=== PATIENT | female | born 1980 | race Caucasian/White ===

== ENCOUNTER 2021-05-02 09:54 | Outpatient (REF) | payer MEDICAID, SELFPAY ==
--- NOTE | ~2021-05-02 | XR_ITS ---
EXAMINATION: XR CHEST CLINICAL INFORMATION: Viral infection. Cough. COMPARISON: Previous chest x-ray February 2020 TECHNIQUE: 2 views of the chest were obtained. FINDINGS: No significant abnormality is noted involving the heart, lungs, mediastinum, bony thorax or soft tissues. XR/XR chest 2V IMPRESSION: Unremarkable examination.
== END 2021-05-02 09:55 | disposition home or self-care (01) ==
LOC: HO.XRAY 09:54
PROVIDERS: PCP Pediatrics; Visit Provider General Practice
DX: R05 Cough (principal); B34.9 Viral infection, unspecified
CPT/HCPCS: 71046

== ENCOUNTER 2023-04-16 13:15 | Outpatient (REF) | payer MEDICAID, SELFPAY ==
--- NOTE | ~2023-04-16 | XR_ITS ---
EXAMINATION: XR CHEST CLINICAL INFORMATION: Cough, Covid positive March 2014 COMPARISON: 06/02/2021 TECHNIQUE: 3 views of the chest were obtained. FINDINGS: Lung volumes are low. There is no gross pneumothorax. Heart size is normal. No focal consolidation to suggest pneumonia. No pleural effusion. XR/XR chest 2V IMPRESSION: Low lung volumes.
== END 2023-04-16 13:16 | disposition home or self-care (01) ==
LOC: HO.HHCX 13:15
PROVIDERS: Visit Provider Internal Medicine
DX: U07.1 COVID-19 (principal); J40 Bronchitis, not specified as acute or chronic
CPT/HCPCS: 71046

== ENCOUNTER 2023-09-07 12:34 | Outpatient (REF) | payer MEDICAID, SELFPAY ==
[2023-09-07 15:04] LABS: Alanine Aminotransferase 43 U/L (0-31); Albumin Level 4.1 g/dL (3.5-5.0); Alkaline Phosphatase 73 U/L (39-117); Aspartate Amino Transferase 34 U/L (5-31); Bilirubin Direct 0.1 mg/dL (0.0-0.5); Bilirubin Total 0.3 mg/dL (0.0-1.0); Total Protein 7.9 g/dL (6.5-8.0)
[2023-09-10 12:38] LABS: HCV Log PCR 6.64 Log IU/mL (NOT DETECTED); HepC Viral Load 4390000 IU/mL (NOT DETECTED)
== END 2023-09-07 12:35 | disposition home or self-care (01) ==
LOC: HO.CHCLDS 12:34
PROVIDERS: Visit Provider Family Medicine
DX: B18.2 Chronic viral hepatitis C (principal)
CPT/HCPCS: 36415; 80076; 87522

== ENCOUNTER 2023-10-04 08:41 | Outpatient (REF) | payer MEDICAID, SELFPAY | END 2023-10-04 08:42 | disposition home or self-care (01) | LOC: HO.XRAY 08:41 | PROVIDERS: PCP Pediatrics; Visit Provider Orthopaedic Surgery | DX: Z13.89 Encounter for screening for other disorder (principal) ==

== ENCOUNTER 2023-10-04 08:53 | Outpatient (AMB) | payer MEDICAID, SELFPAY ==
--- NOTE | 2023-10-04 09:01 | A.OFFVIS_ITS ---
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 She states that her symptoms began in April. She does not recall a specific traumatic event preceding the onset of her pain. The patient states that 2 months ago her range of motion was very limited. One of her friends is a physical therapist. She has been working with the friend on range of motion exercises. She states that her range of motion and discomfort have improved significantly over the last few weeks. 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 She has not been working recently because there is no light duty available. Allergies No Known Allergies Allergy (Verified 10/04/23 09:01) Medication List - Last Reconciled 10/04/23 by Milad Cerrato MD methadone 140 mg PO DAILY PFSH Surgical History (Updated 10/04/23 @ 09:03 by Erinn Piedra MA) Hx of section Social History Household Members: Children Housing: House Alcohol intake: never Patient Tobacco Use Status: Current everyday Tobacco user Cigarettes Per Day: 10 Years Smoked: 20 e-Cigarette/Vaping Use: Never Used Use of substances other than those prescribed or required for medical reasons: No Current occupational status: other Physical Exam Const Other: Well-nourished well-developed very friendly female awake alert and oriented x3 in no acute distress Extrem Other: Bilateral upper extremity examination shows good capillary refill, no skin lesions noted, normal sensation light touch Right shoulder examination shows slightly decreased range of motion when compared to her left shoulder, 5/5 strength with supraspinatus testing, positive impingement signs, tenderness over her acromioclavicular joint, no instability Results Reviewed Results Reviewed: X-rays of the patient's right shoulder show moderate acromioclavicular joint narrowing, a type 2 acromion, no acute bony abnormalities Assessment & Plan Assessment & Plan (1) Right shoulder pain: Code(s): M25.511 - Pain in right shoulder Plan Ms. Hester presents with right shoulder pain most likely due to impingement syndrome as well as resolving adhesive capsulitis. I had a lengthy discussion with the patient regarding the treatment options. At this point the patient's symptoms are improving with range of motion exercises. We will hold off on a cortisone injection. The patient can return to work over the next 1-2 weeks as her discomfort allows. The do's and don'ts of lifting were discussed at length with the patient. She will follow up with me on an as-needed basis should her symptoms not plateau at an unacceptable level. Feel free to call me at any time should questions regarding her orthopedic management arise. Thank you very much for asking me to see this very friendly patient. I spent 22 minutes in reviewing the patient's records and imaging studies, seeing the patient and documenting in the medical record. Orders: Orders XR shoulder RT min 2V Today M25.511 - Pain in right shoulder Coding Level of Care Code New Pt Level 2 (92402) Diagnoses Right shoulder pain M25.511
== END 2023-10-04 09:19 | disposition home or self-care (01) ==
PROVIDERS: PCP Pediatrics; Visit Provider Orthopaedic Surgery
DX: M25.511 Pain in right shoulder (principal)
CPT/HCPCS: 99202

== ENCOUNTER 2023-10-04 12:52 | Outpatient (REF) | payer MEDICAID, SELFPAY ==
--- NOTE | ~2023-10-04 | XR_ITS ---
EXAMINATION: XR SHOULDER, RIGHT CLINICAL INFORMATION: Pain in right shoulder COMPARISON: None available. TECHNIQUE: AP and scapular view of the right shoulder FINDINGS: The bones and soft tissues are normal. No fracture. Glenohumeral and acromioclavicular alignment is anatomic with normal joint space. No abnormal soft tissue calcifications. XR/XR shoulder RT min 2V IMPRESSION: Normal right shoulder.
== END 2023-10-04 12:53 | disposition home or self-care (01) ==
LOC: HO.HOSX 12:52
PROVIDERS: Visit Provider Orthopaedic Surgery
DX: M25.511 Pain in right shoulder (principal)
CPT/HCPCS: 73030; 99202

== ENCOUNTER 2024-04-29 10:13 | Outpatient (REF) | payer MEDICAID, SELFPAY ==
--- NOTE | ~2024-04-29 | MM_ITS ---
EXAMINATION: MM SCREENING DIGITAL BREAST TOMOSYNTHESIS, BILATERAL CLINICAL INFORMATION: Screening. Asymptomatic. COMPARISON: Mammography: This is a baseline mammogram TECHNIQUE: Digital breast tomosynthesis is performed in both the craniocaudal and mediolateral oblique views along with computer-aided detection (CAD). Synthesized 2D images are generated from the tomosynthesis. FINDINGS: The breasts are almost entirely fatty (ACR BI-RADS breast composition Category a). There are no significant masses, abnormal calcifications, or other abnormalities. MM/MM tomosynthesis screening BI IMPRESSION: No mammographic evidence of malignancy. ASSESSMENT: BI-RADS BI-RADS 1 - Negative RECOMMENDATION: Routine annual mammography screening. 1 year F/U This examination should not preclude the clinical evaluation of a suspicious palpable abnormality. This patient's information was entered into a reminder system with a target due date for their next mammogram.
== END 2024-04-29 10:14 | disposition home or self-care (01) ==
LOC: HO.MAMMO 10:13
PROVIDERS: PCP Pediatrics; Visit Provider Pediatrics
DX: Z12.31 Encounter for screening mammogram for malignant neoplasm of breast (principal)
CPT/HCPCS: 77063; 77067

== ENCOUNTER → 2024-04-29 10:30 | Outpatient (BNV) | payer MEDICAID, SELFPAY | PROVIDERS: PCP Pediatrics; Visit Provider Radiology Diagnostic Radiology | DX: Z12.31 Encounter for screening mammogram for malignant neoplasm of breast (principal) | CPT/HCPCS: 77063; 77067 ==

== ENCOUNTER 2024-11-07 14:20 | Outpatient (REF) | payer MEDICAID, SELFPAY ==
--- NOTE | ~2024-11-07 | XR_ITS ---
EXAMINATION: XR CHEST CLINICAL INFORMATION: SOB, known Flu A COMPARISON: X-ray dated April 16, 2023 TECHNIQUE: 2 views of the chest were obtained. FINDINGS: No consolidation, pleural effusion or pneumothorax. No hyperinflation. Cardiomediastinal silhouette is normal in size. Osseous structures are grossly intact. Patient's large body habitus. XR/XR chest 2V IMPRESSION: No acute airspace disease. Electronically signed by: Rocael Isidro MD 11/07/2024 02:42 PM [facility]
[2024-11-07 16:03] LABS: MANUAL DIFF FLAG NO
[2024-11-07 16:10] LABS: Basophils Percent Auto 0.3 % (0-2); Eosinophils Percent Auto 0.4 % (0-4); Hematocrit 47.7 % (37.0-47.0); INTERNATIONAL NORM RATIO 1.1 (0.9-1.1); Imm Gran Abs Auto 0.02 X10*3/uL (0.00-0.03); Imm Gran Pct Auto 0.3 % (0.0-0.4); Lymphocytes Absolute Auto 2.2 X10*3/uL (1.2-4.9); Lymphocytes Percent Auto 27.4 % (20-40); Mean Corpuscular HGB Conc 33.5 g/dl (31.0-35.0); Mean Corpuscular Hemoglobin 29.4 pg (27.0-33.0); Mean Corpuscular Volume 87.7 fL (80.0-98.0); Mean Platelet Volume 10.3 fL (9.4-12.3); Monocytes Absolute Auto 0.5 X10*3/uL (0.1-1.2); Monocytes Percent Auto 5.7 % (2-11); Neutrophils Absolute Auto 5.2 x10*3/uL (2.0-8.3); Neutrophils Percent Auto 65.9 % (45-73); Platelet Count 145 X10*3/uL (160-400); Prothrombin Time 12.3 SEC (10.9-12.4); Red Blood Count 5.44 X10*6/uL (4.20-5.50); Red Cell Distribution Width 11.6 % (11.0-16.0); White Blood Count 7.9 X10*3/uL (4.8-10.8)
[2024-11-07 17:04] LABS: Alanine Aminotransferase 70 U/L (0-31); Albumin Level 4.4 g/dL (3.5-5.0); Alkaline Phosphatase 76 U/L (39-117); Anion Gap 10 (12-20); Aspartate Amino Transferase 54 U/L (5-31); Bilirubin Total 0.6 mg/dL (0.0-1.0); Blood Urea Nitrogen 13 mg/dL (9-16); Calcium 9.5 mg/dL (8.4-10.2); Carbon Dioxide 27 mmol/L (22-29); Chloride 103 mmol/L (96-108); Cholesterol 151 mg/dL (<200); Estimated Glomerular Filt Rate > 60; Glucose Random 111 mg/dL (60-115); HDL Cholesterol 38 mg/dL (>40); LDL Cholesterol Calculated 98 mg/dL (<100); Potassium 3.9 mmol/L (3.3-5.1); Sodium 136 mmol/L (135-145); Total Protein 8.8 g/dL (6.5-8.0); Triglycerides 79 mg/dL (<150)
[2024-11-10 08:15] LABS: HIV AB/AG Nonreactive (Nonreactive); HIV Num 1 0.05 S/CO (0.00-0.99)
== END 2024-11-07 14:21 | disposition home or self-care (01) ==
LOC: HO.HHCX 14:20
PROVIDERS: Pediatrics; Visit Provider General Practice
DX: R06.02 Shortness of breath (principal); B18.2 Chronic viral hepatitis C; I10 Essential (primary) hypertension
CPT/HCPCS: 36415; 71046; 80053; 80061; 81596; 85025; 85610; 87389; 87902

== ENCOUNTER → 2024-11-07 14:21 | Outpatient (BNV) | payer MEDICAID, SELFPAY | PROVIDERS: Visit Provider Radiology Diagnostic Radiology | DX: R06.02 Shortness of breath (principal) | CPT/HCPCS: 71046 ==

== ENCOUNTER 2024-11-07 14:38 | Outpatient (REF) | payer MEDICAID, SELFPAY | END 2024-11-07 14:39 | disposition home or self-care (01) | LOC: HO.HHCL 14:38 | PROVIDERS: Visit Provider General Practice | DX: Z13.89 Encounter for screening for other disorder (principal) ==

== ENCOUNTER 2025-05-07 17:58 | Emergency (ER) | payer MEDICAID, SELFPAY ==
--- NOTE | ~2025-05-07 | CT_ITS ---
CLINICAL HISTORY: left facial numbness CT head without contrast Comparison: None provided Findings: No intra-axial mass, midline shift, hydrocephalus, or acute hemorrhage. No significant atrophy-like change or white matter disease. The visualized paranasal sinuses and mastoid air cells are clear. The orbits are within normal limits. No skull fracture. IMPRESSION: 1. No acute intracranial findings. This document has been electronically signed by: Hailey Sarabia MD on 05/07/2025 19:14:14
[2025-05-07 18:09] VITALS: BP 137/109; PULSE 104; RESP 16; TEMP 36.7; O2SAT 97; BMI 37.8
--- NOTE | 2025-05-07 18:10 | ED_ITS ---
HPI - General Adult General Chief complaint: Neuro Symptoms/Deficit Stated complaint: tightness & numbness on left side of face and neck Time Seen by Provider: 05/07/25 21:34 Source: patient Mode of arrival: ambulatory Limitations: no limitations History of Present Illness ED Provider: Dr. Pili Gillette HPI narrative: Patient comes to the emergency room complaining of left signs numbness and tingling, significant decreased sensation in the left side of the face, strange sensation swallowing. Patient states she has no pain. Patient states that she is currently being treated for shingles which she had on her left buttocks. Patient states that the rash already crusted. Patient states that over last few hours, her symptoms have gotten more obvious. Patient denies any ear infections Related Data Home Medications ?Medication ?Instructions ?Recorded ?Confirmed methadone 5 mg tablet 140 mg PO DAILY 10/04/23 Allergies Allergy/AdvReac Type Severity Reaction Status Date / Time No Known Allergies Allergy Verified 05/07/25 18:13 Review of Systems 2 Review of Systems: Constitutional : No Weight loss, No Fever, No Chills, No Night Sweats, No Fatigue, No Malaise ENT/Mouth : No Hearing loss, No Ear Pain, No Nasal Congestion, No Sinus Pain, No Hoarseness, No sore throat, No Rhinorrhea, No Swallowing Difficulty Eyes: No Eye Pain, No Swelling, No Redness, No Foreign Body, No Discharge, No Vision Changes Cardiovascular : No Chest Pain, No SOB, No Dyspnea on Exertion, No Orthopnea, No Edema, No Palpitations Respiratory : No Cough, No Sputum, No Wheezing, No Smoke Exposure, No Dyspnea Gastrointestinal : No Nausea, No Vomiting, No Diarrhea, No Constipation, No abdominal Pain, No Hematochezia, No Melena Genitourinary : no irregular bleeding, No Dysuria, No Urinary Frequency, No Hematuria, No Urinary Incontinence, No Urgency, No Flank Pain, No Urinary Flow Changes, No Hesitancy Musculoskeletal : No joint pain, No Myalgias, No Joint Swelling Skin : No Skin Lesions, No rash Neuro : No Weakness, No Numbness, patient complaining of paresthesias on the left side of the face, difficulty swallowing, got worse over the last few hours Psych : No Anxiety/Panic, No Depression, No SI/HI/AH/VH, No Social Issues, Heme/Lymph: No Bruising, No Bleeding,No Lymphadenopathy Endocrine : No Polyuria, No Polydipsia, No Temperature Intolerance [facility] Past Medical History Medical History (Updated 05/07/25 @ 22:08 by Pili Gillette MD) Hypertension Surgical History (Updated 10/04/23 @ 09:03 by Erinn Piedra CMA) Hx of section Social History Social History Household Members: Children Housing: House Alcohol intake: never Patient Tobacco Use Status: Current everyday Tobacco user Cigarettes Per Day: 10 Years Smoked: 20 e-Cigarette/Vaping Use: Never Used Advance Directives: No Advance Directives Information Provided: No Do you have a plan to hurt others: No Plan Current occupational status: other Physical Exam ED Vital Signs: Vital Signs - 24 hr 05/07/25 18:09 05/07/25 20:23 Temperature 98.0 F 97.6 F Pulse Rate 104 H 77 Respiratory Rate 16 18 Blood Pressure 137/109 H 131/74 Pulse Oximetry 97 96 Oxygen Delivery Method Room Air Room Air BMI result Body Mass Index 37.8 Const Other: Appearance: Alert. Oriented X3. No acute distress. Eyes: Pupils equal, round and reactive to light. ENT: Pharynx normal. Neck: Normal inspection. Neck supple. No lymph nodes noted. No crepitus CVS: Normal heart rate and rhythm. Pulses normal. Normal S1 and S2 Respiratory: No respiratory distress. Breath sounds normal. No Wheezing. No rales Abdomen: Soft and nontender. No rigidity. No distention. Skin: Skin warm and dry. Normal skin color. Normal skin turgor. Extremities: No lower extremity edema. No Lacerations. No Rash Neuro: Oriented X 3. No motor deficit. No sensory deficit. Moving all extremities. No slurred speech. CN 2 through 12 grossly intact Psych: calm, cooperative, normal affect Course Course Course Narrative: This is a rapid medical exam performed by Alphonso Wooten NP: Additional HPI, ROS, PE not included below will be deferred to primary provider. Patient is a 44y/o F presenting from urgent care with complaint of tightness and numbness to left side of face for the past 3 days, also feels difficulty swallowing. Was treated for shingles on 04/24, states her lesions have since crusted over. Face symmetrical. Managing secretions without difficulty. Plan: labs, ct Medical Decision Making Medical Decision Making [facility] Narrative: Patient's CT scan does not show any acute abnormality in patient's labs. CT scan does not show any acute abnormality. Patient states that the numbness/tingling on the left side of the thighs got a bit worse over the last few hours. Patient states she is still able to swallow but it feels very different. On physical exam, there are no signs of Rodriguez's palsy, patient has complete normal facial muscle movement. Normal cranial nerve assessment. Patient is currently being treated for shingles which she had in her buttocks. However, unlikely but not impossible that the viral infection may be causing the paresthesias on the face. It is a very odd distribution of neurological symptoms. I discussed with the patient that the next step is to do a CTA to rule out any thrombus in the brain vasculature. Patient states that she had a bad reaction with contrast in the past, states that her blood pressure got high, make her feel very sick. I offered premedicated the patient to help her with the symptoms since she did not have anaphylactic reaction, we could try. Patient states that she is not willing to get IV contrast. I offered the patient admission to get an MRI. I spoke with Dr. Bernard from the Medicine team, who agrees to admit the patient. However, patient states that she does not have anyone who can take care of her children tonight. Patient states that she may return tomorrow. I discussed with the patient that CVA can not be ruled out. Given the amount of time since her symptoms started, this is not a TIA either, over 48 hours now with worsening symptoms over last few hours I discussed with the patient that if she has any new or worsening symptoms, she needs to return immediately to the emergency room. Patient agrees with plan. Differential Diagnosis Differential Diagnoses: The differential diagnosis associated with the presentation includes (Rodriguez's palsy, CVA) Admission/Observation Consideration of admission/observation: Escalation of care including admission/observation considered (Recommended admission, patient declined) Lab Data [facility] Lab Attestation statement: I reviewed the patient's lab results. 05/07/25 18:25 05/07/25 18:25 Labs: Lab Results 05/07/25 Range/Units 18:25 WBC 7.5 (4.8-10.8) X10*3/uL RBC 5.20 (4.20-5.50) X10*6/uL Hgb 15.7 (12.0-16.0) g/dl Hct 45.8 (37.0-47.0) % MCV 88.1 (80.0-98.0) fL MCH 30.2 (27.0-33.0) pg MCHC 34.3 (31.0-35.0) g/dl RDW 11.5 (11.0-16.0) % Plt Count 146 L (160-400) X10*3/uL MPV 10.2 (9.4-12.3) fL Immature Gran % (Auto) 0.1 (0.0-0.4) % Neut % (Auto) 65.6 (45-73) % Lymph % (Auto) 27.6 (20-40) % [place] % (Auto) 5.9 (2-11) % Eos % (Auto) 0.5 (0-4) % Baso % (Auto) 0.3 (0-2) % Lymph # (Auto) 2.1 (1.2-4.9) X10*3/uL [place] # (Auto) 0.4 (0.1-1.2) X10*3/uL Eos # (Auto) 0.0 (0.0-0.4) X10*3/uL Baso # (Auto) 0.0 (0.0-0.2) X10*3/uL Abs Immat Gran (auto) 0.01 (0.00-0.03) X10*3/uL Absolute Neuts (auto) 4.9 (2.0-8.3) x10*3/uL Absolute Nucleated RBC 0.000 (0.0-0.012) X10*3/uL Nucleated RBC % (auto) 0.0 (0.0-0.2) /100WBC Sodium 136 (135-145) mmol/L Potassium 4.4 (3.3-5.1) mmol/L Chloride 104 (96-108) mmol/L Carbon Dioxide 23 (22-29) mmol/L Anion Gap 13 (12-20) BUN 12 (9-16) mg/dL Creatinine 0.73 (0.5-1.4) mg/dL Estim Creat Clear Calc 105.9 Estimated GFR > 60 Random Glucose 193 H (60-115) mg/dL Calcium 9.5 (8.4-10.2) mg/dL Total Bilirubin 0.6 (0.0-1.0) mg/dL AST 126 H (5-31) U/L ALT 176 H (0-31) U/L Alkaline Phosphatase 81 (39-117) U/L Total Protein 8.3 H (6.5-8.0) g/dL Albumin 4.4 (3.5-5.0) g/dL Beta HCG, Quant < 2 mIU/mL Independent Interpretation I performed an independent interpretation of an: CT Scan Radiology Impression Discussion of test interpretation with radiology: I have reviewed the radiologist's reading. Radiologist Impression: No intra-axial mass, midline shift, hydrocephalus, or acute hemorrhage. No significant atrophy-like change or white matter disease. The visualized paranasal sinuses and mastoid air cells are clear. The orbits are within normal limits. No skull fracture. IMPRESSION: 1. No acute intracranial findings. Critical Care Time Critical Care Time Critical Care Time: Yes Total Critical Care Time: 60 Attestation: I have personally provided critical care time. Time includes review of lab data, radiology results, discussion with consultants, and monitoring for potential decompensation. Intervention performed as documented. Discharge Plan Discharge Clinical Impression: Facial paresthesia Patient Disposition: Left Against Medical Advice Instructions: Paresthesia (ED) Additional Instructions: Please follow-up with your primary care physician tomorrow. If you have any worsening or new symptoms, please return to the emergency room or call 911 Prescriptions: No Action methadone 5 mg tablet 140 mg PO DAILY Print Language: Syrian
[2025-05-07 18:29] LABS: MANUAL DIFF FLAG NO
[2025-05-07 18:31] LABS: Hematocrit 45.8 % (37.0-47.0); Hemoglobin 15.7 g/dl (12.0-16.0); Imm Gran Abs Auto 0.01 X10*3/uL (0.00-0.03); Imm Gran Pct Auto 0.1 % (0.0-0.4); Lymphocytes Absolute Auto 2.1 X10*3/uL (1.2-4.9); Mean Corpuscular HGB Conc 34.3 g/dl (31.0-35.0); Mean Corpuscular Hemoglobin 30.2 pg (27.0-33.0); Mean Corpuscular Volume 88.1 fL (80.0-98.0); NRBC Abs Auto 0.000 X10*3/uL (0.0-0.012); NRBC Pct Auto 0.0 /100WBC (0.0-0.2); Platelet Count 146 X10*3/uL (160-400); Red Blood Count 5.20 X10*6/uL (4.20-5.50); White Blood Count 7.5 X10*3/uL (4.8-10.8)
[2025-05-07 18:51] LABS: Alanine Aminotransferase 176 U/L (0-31); Albumin Level 4.4 g/dL (3.5-5.0); Alkaline Phosphatase 81 U/L (39-117); Anion Gap 13 (12-20); Aspartate Amino Transferase 126 U/L (5-31); Blood Urea Nitrogen 12 mg/dL (9-16); Calcium 9.5 mg/dL (8.4-10.2); Carbon Dioxide 23 mmol/L (22-29); Chloride 104 mmol/L (96-108); Creatinine Clr Calc Pharmacy 105.9; Estimated Glomerular Filt Rate > 60; Potassium 4.4 mmol/L (3.3-5.1); Sodium 136 mmol/L (135-145); Total Protein 8.3 g/dL (6.5-8.0)
[2025-05-07 20:23] VITALS: BP 131/74; PULSE 77; RESP 18; TEMP 36.4; O2SAT 96
[2025-05-07 22:10] VITALS: BP 131/74; PULSE 77; RESP 18; TEMP 36.4; O2SAT 96
== END 2025-05-07 22:13 | disposition left against medical advice (07) ==
PROVIDERS: Registered Nurse Emergency; Emergency Provider Emergency Medicine; PCP Pediatrics
DX: R20.2 Paresthesia of skin (principal); B02.8 Zoster with other complications; R20.0 Anesthesia of skin; R13.10 Dysphagia, unspecified; Z79.899 Other long term (current) drug therapy; F17.210 Nicotine dependence, cigarettes, uncomplicated
CPT/HCPCS: 36415; 70450; 80053; 84702; 85025; 99283; 99291

== ENCOUNTER → 2025-05-07 18:13 | Outpatient (BNV) | payer MEDICAID, SELFPAY | PROVIDERS: Visit Provider Specialist | DX: R29.810 Facial weakness (principal) | CPT/HCPCS: 70450 ==

== ENCOUNTER 2025-05-08 21:41 | Emergency (ER) | payer MEDICAID, SELFPAY ==
[2025-05-08 21:47] VITALS: BP 175/96; PULSE 121; RESP 20; TEMP 36.2; O2SAT 98; BMI 38.4
--- OUTSIDE RECORDS SUMMARY | 2025-05-08 22:29 | XMS_ITS | Clinical Summary ---
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 Name Role Phone Unavailable Primary Care Provider Unavailabl e Social History Tobacco Use Types Packs/Day Years Used Date Smoking Tobacco: Never Assessed Comments Unknown Sex and Gender Information Value Date Recorded Sex Assigned at Not on file Legal Sex Female 5:32 AM EST Gender Identity Not on file Sexual Orientation Not on file Plan of Treatment Health Maintenance Due Date Last Done Comments Breast Cancer Screening 1981 DTaP,Tdap,and Td Vaccines (1 - Tdap) 2000 Hepatitis B Vaccines (1 of 3 - 19+ 3-dose series) 2000 Cervical Cancer Screening: P ap Smear 2002 COVID-19 Vaccine (2023-2 5 season) 2024 Depression Screening 10/22/2024 Influenza Vaccine (#1) 2025 HIB Vaccines Aged Out No longer eligi ble based on patient's age to complete this topic HPV Vaccines Aged Out No longer eligi ble based on patient's age to complete this topic Hepatitis A Vaccines Aged Out No long er eligible based on patient's age to complete this topic IPV Vaccines Aged Out No longer eligi ble based on patient's age to complete this topic MMR Vaccines Aged Out No longer eligi ble based on patient's age to complete this topic Meningococcal ACWY Vaccine Aged Out N o longer eligible based on patient's age to complete this topic Meningococcal B Vaccine Aged Out No l onger eligible based on patient's age to complete this topic Pneumococcal Vaccine: Pediat rics (0 to 5 Years) and At-Risk Patients (6 to 49 Years) Aged Out No longer eligible b ased on patient's age to complete this topic RSV Immunization Patients Un jennifer 20 months Aged Out No longer eligible b ased on patient's age to complete this topic Varicella Vaccines Aged Out No longer eligible based on patient's age to complete this topic
--- NOTE | 2025-05-08 22:32 | ED.NECK ---
HPI - Neck Pain/Injury General Chief Complaint: Neck Pain/Injury Stated Complaint: increase BP; left face numbness Time Seen by Provider: 05/08/25 22:25 Source: patient Mode of arrival: ambulatory Limitations: no limitations History of Present Illness ED Provider: HPI Narrative: Patient has been having nonspecific paresthesia feeling on the left side of the face for last 4 days was seen here yesterday and had a CT of the head which was negative patient does have history of migraine and started having migraine today on the left side no motor weakness patient also does have history of anxiety feeling anxious today no history of tick bite no history of multiple sclerosis in the past no head injury Related Data Home Medications ?Medication ?Instructions ?Recorded ?Confirmed methadone 5 mg tablet 140 mg PO DAILY 10/04/23 10/04/23 Previous Rx's ?Medication ?Instructions ?Recorded cqzmigeghz-mjhhfavrcyxro-bbepldjs 1 tab PO Q6H PRN haeadace #20 tabs 05/08/25 50 mg-325 mg-40 mg tablet Allergies Allergy/AdvReac Type Severity Reaction Status Date / Time shellfish derived (shellfish) Allergy Itching Verified 05/08/25 21:48 Review of Systems Review of Systems: Yes all other systems are reviewed and are negative PMFSH Past Medical History Medical History Hypertension Surgical History Hx of section Social History Social History Household Members: Children Housing: House Alcohol intake: never Patient Tobacco Use Status: Current everyday Tobacco user Cigarettes Per Day: 10 Years Smoked: 20 Smoked in Last 30 Days: Yes e-Cigarette/Vaping Use: Never Used Use of substances other than those prescribed or required for medical reasons: No Advance Directives: No Advance Directives Information Provided: No Current occupational status: other Physical Exam Vital Signs: Vital Signs: Last Vital Signs Temp 98.2 F 05/08/25 23:10 Pulse 89 05/08/25 23:10 Resp 14 05/08/25 23:10 BP 126/62 05/08/25 23:10 Pulse Ox 97 05/08/25 23:10 O2 Del Method Room Air 05/08/25 23:10 BMI result Body Mass Index 38.4 Appearance: Alert. Oriented X3. No acute distress. Eyes: PERRLA, No Nystagmus ENT: Pharynx normal. Oral Mucosa moist Neck: Normal inspection. Neck supple. CVS: Normal heart rate and rhythm. Pulses normal. Respiratory: No respiratory distress. Equal air entry bilateral, no wheezing/rales/rhonchi Abdomen: Soft and nontender. Bowel sounds are present, no mass palpable, no CVA tenderness Skin: Skin warm and dry. Normal skin color. Normal skin turgor. Extremities: No lower extremity edema. No calf tenderness Neuro: Oriented X 3. No motor deficit. No sensory deficit.No cerebellar signs , cranial nerves II-XII intact no objective finding of sensory loss on the face of the neck Medications Administered Discontinued Medications Generic Name Dose Route Start Last Admin Trade Name Freq PRN Reason Stop Dose Admin Acetaminophen/Butalbital/Caffeine 1 tab 05/08/25 22:58 05/08/25 23:49 Butalb/Acetamin/Caff 50/325/40 Tablet PO 05/08/25 22:59 Not Given ONCE ONE Medical Decision Making Medical Decision Making [facility] Narrative: Patient with nonspecific paresthesia in the left side of the face sparing the forehead no motor weakness noticed does have a headache with a history of migraine likely migraine equivalent patient had a CT scan done yesterday of the head which was negative today's ESR and CRP also negative will order Lyme titer also patient does not have any history of any tick bite. No family history of multiple sclerosis will discharge patient home on [facility] Differential Diagnosis Differential Diagnoses: The differential diagnosis associated with the presentation includes Migraine equivalent/multiple sclerosis with/Lyme disease/anxiety Lab Data [facility] Lab Attestation statement: I reviewed the patient's lab results. Labs: Lab Results 05/08/25 Range/Units 23:07 ESR 7 (0-20) MM/HR C-Reactive Protein 0.22 (< or = 0.50) mg/dL Discharge Plan Discharge Clinical Impression: Migraine Patient Disposition: Home, Self-Care Instructions: Migraine Headache (ED) Additional Instructions: Your symptoms unlikely from complex migraine Take the medication as prescribed and follow up with neurologist Prescriptions: New vpoohwdqmm-hjdgmyewoqmow-rmtl 50-325-40 mg tablet 1 tab PO Q6H PRN (Reason: haeadace) Qty: 20 0RF No Action methadone 5 mg tablet 140 mg PO DAILY Print Language: Venezuelan
[2025-05-08 23:10] VITALS: BP 126/62; PULSE 89; RESP 14; TEMP 36.8; O2SAT 97
--- NOTE | 2025-05-08 23:49 | PC.NURSE ---
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 MD aware. awaiting d/c.
[2025-05-09] MEDS: Butalb/Acetamin/Caff 50/325/40 TABLET 1 TAB PO (00:10)
[2025-05-09 00:18] VITALS: BP 126/62; PULSE 89; RESP 14; TEMP 36.8; O2SAT 97
[2025-05-12 05:13] LABS: Lyme Abs Screen <0.90 index
== END 2025-05-09 00:19 | disposition home or self-care (01) ==
PROVIDERS: Emergency Provider Internal Medicine; PCP Pediatrics
DX: G43.909 Migraine, unspecified, not intractable, without status migrainosus (principal); F17.210 Nicotine dependence, cigarettes, uncomplicated
CPT/HCPCS: 36415; 85652; 86140; 86617; 86618; 99283; 99284

== ENCOUNTER 2025-08-11 11:23 | Outpatient (REF) | payer MEDICAID, SELFPAY ==
[2025-08-11 15:06] LABS: Anion Gap 12 (12-20); Blood Urea Nitrogen 11 mg/dL (9-16); Calcium 9.4 mg/dL (8.4-10.2); Carbon Dioxide 29 mmol/L (22-29); Chloride 101 mmol/L (96-108); Cholesterol 155 mg/dL (<200); Estimated Glomerular Filt Rate > 60; HDL Cholesterol 41 mg/dL (>40); Potassium 4.1 mmol/L (3.3-5.1); Sodium 138 mmol/L (135-145); Triglycerides 87 mg/dL (<150)
== END 2025-08-11 11:24 | disposition home or self-care (01) ==
LOC: HO.CHCLDS 11:23
PROVIDERS: Visit Provider Student in an Organized Health Care Education/Training Program
DX: R22.1 Localized swelling, mass and lump, neck (principal)
CPT/HCPCS: 36415; 80048; 80061; 84443

== ENCOUNTER 2025-08-19 10:52 | Outpatient (AMB) | payer MEDICAID, SELFPAY ==
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
--- OUTSIDE RECORDS SUMMARY | 2025-08-19 13:43 | XMS_ITS | Encounter Summary ---
Author Organization [employer] Address [address] [facility] [address] [place] [address] Care Team Providers Care Health Management Consultant Name Role Phone Cristina De La Cruz MD Primary Care Provider [phone] Reason for Visit * Reason Onset Date Comments Letter for School/Work 09/24/2023 Encounter Details Date Type Department Care Team ([facility] st Contact Info) Description 09/24/2023 Telephone [facility] [address] [place] [address] Cristina De La Cruz MD [address] [place] [address] Letter for School/Work Social History Tobacco Use Types Packs/Day Years Used Date Smoking Tobacco: Every Day Cigarettes Comments Unknown Sex and Gender Information Value Date Recorded Sex Assigned at Female 08/21/2022 10:35 AM EDT Legal Sex Female 10:35 AM EDT Gender Identity Female 08/21/2022 10:35 AM EDT Sexual Orientation Straight 08/21/2022 10 :35 AM EDT documented as of this encounter Miscellaneous Notes * Telephone Encounter - Hailey Fenton RN - 09/26/2023 10:59 AM EST Placed call to pt regarding message below. Pt states she has an appt on 10/04/23 with Ortho and that was the soonest they can see pt. Pt states doing home PT exercises as pt has exhausted outpatient PT visits. Pt states she has some improvement with ROM of should but is still unable to lift arm fully or brush her hair with dominant arm. She is requesting an extension of note until she can see Ortho . Informed pt that pt may need to be evaluated regardless but pt is stating if PCP can extend note without being seen as pt was seen a couple of weeks ago. Informed pt that message will be sent to PCP for review but may still need to be seen with a provider. Pt agrees with plan. * Telephone Encounter - Landen Perez - 09/24/2023 1:21 PM EST Tc from patient requesting a note for work and to cover for 09/21 to 10/04 documented in this encounter Plan of Treatment Upcoming Encounters Date Type Department Care Team ([facility] st Contact Info) Description 09/15/2025 10:30 AM EST Office Visit [facility] [address] [place] [address] Cristina De La Cruz MD [address] [place] [address] documented as of this encounter Visit Diagnoses Not on filedocumented in this encounter Care Teams Health Management Consultant Relationship Specialty Start Date End Date Cristina De La Cruz MD [address] [place] [address] PCP - General Family Medicine 05/21/19 documented as of this encounter
--- OUTSIDE RECORDS SUMMARY | 2025-08-19 13:43 | XMS_ITS | Clinical Summary ---
Author Organization [employer] Address [address] [facility] [address] [place] [address] Care Team Providers Care Network Support Engineer Name Role Phone Cristina De La Cruz MD Primary Care Provider [phone] Allergies Active Allergy Reactions Criticality Noted Date Comments Codeine 11/07/2024 Shellfish Allergy 11/07/2024 Medications Spacer/Aero-Hol ding Chambers (AEROCHAMBER MAX W/FLOW-VU) miscIndications :Bronchitis Use qid prn with inhaler 1 each 04/13/20 23 Active sofosbuvir-velp atasvir (Epclusa) 400-100 MG tablet Take 1 tablet by mouth in the morning. 04/18/20 23 Active naproxen (Naprosyn) 500 MG tablet Take 500 mg by mouth 2 times daily. 06/20/20 23 Active albuterol (Ventolin HFA) 108 (90 Base) MCG/ACT inhalerIndicati ons:Moderate persistent asthma with exacerbation INHALE 2 PUFFS BY INHALATION ROUTE 4 TIMES EVERY DAY NEEDED FOR SHORTNESS OF BREATH 18 g 1 04/15/20 24 Active Diclofenac Sodium 1 % gel APPLY SPARINGLY TO AFFECTED AREA ONCE DAILY 08/29/20 24 Active lidocaine (Lidoderm) 5 % patch APPLY 1 PATCH AND LEAVE IN PLACE FOR 12 HOURS, THEN REMOVE AND LEAVE OFF FOR 12 HOURS 09/09/20 24 Active SUMAtriptan (Imitrex) 25 MG tabletIndicatio ns:Facial numbness Take 1 tablet (25 mg) by mouth 1 (one) time if needed for migraine for up to 9 doses. May repeat dose once in 2 hours if no relief. Do not exceed 2 doses in 24 hours. 9 tablet 05/13/20 25 Active olmesartan (Benicar) 5 MG tablet Take 1 tablet (5 mg) by mouth Once per day. 30 tablet 11 08/11/20 25 026 Active olmesartan (Benicar) 5 MG tablet Take 1 tablet (5 mg) by mouth Once per day. 30 tablet 11 11/11/19 25 025 Discontinued(R eorder (will not trigger notification to Pharmacy)) Active Problems Problem Noted Date Diagnosed Date Essential hypertension 11/20/2024 Opioid use disorder in remission 11/11/2024 Chronic right shoulder pain 08/29/2023 Assessment & Plan (08/29/2023 2:34 PM EST): Persistent chronic R shoulder pain with limited ROM, reports following with PT, no recent records view in EMR. Reports she needs an extension of time off work. I don't see a shoulder X ray and also I don't see a referral to ortho. Given this is a chronic issue for more then 4 months, made appt with pcp. Elevated blood pressure reading 08/29/2023 Assessment & Plan (08/29/2023 2:34 PM EST): W/o dx of HTN, recommended monitoring and bring readings to PCP, holf off med changes. Asthenia 12/25/2022 Vitamin D deficiency 04/15/2021 Chronic hepatitis C (CMS/HCC) 07/17/2019 Resolved Problems Problem Noted Date Diagnosed Date Resolved Date Moderate persistent asthma with exacerbation 4 11/11/2024 Assessment & Plan (11/24/2023 10:10 AM EST): Likely triggered by viral infection, reportedly Covid Neg at home. Use albuterol inh w spacer q4h x 2d then prn Take PRD 40mg x 5d, with meals, caution with insomnia, increased anxiety or increase BP. Take tylenol prn [place],body aches. If she has recurrent fever that doenst improve with tylenol, she should go to ED. Counseled to check O2 sat prn sxs: If O2 sat is below 92% and doesn't improve within 3 min with rest or albuterol, she should go to ED. If sxs have not improved within 48h, she should go to Walk [facility] Center or ED. Letter to be out of Work from 11/21 - 11/26/23 will be left at [facility] red team. Counseled to quit smoking, not smoking for few days only. Bronchitis 04/13/2023 11/11/2024 Assessment & Plan (04/13/2023 9:25 AM EDT): Most liikely a complication from Covid. Pt seems to not be in respiratory distress. She will check O2 sat at home and will go to ED if O2 sat below 92. Prescription for Z-yaneth + Proair q6 hours with aerochamber + tylenol/ibuprofen q6 hours + increase PO fluids Pt to come on Sunday for CXR to r/o pneumonia COVID-19 01/08/2023 11/11/2024 Assessment & Plan (04/13/2023 9:25 AM EDT): Pt seems to be running regular course of covid, it has been more than 5 days since star of symptoms and diagnosis, she is not eligible for antiviral treatment at this time. Self-care measures: Rest (sleep at least 8 hours a night). Hydrate with plenty of water (avoid caffeine and alcohol). Use saline nose drops to loosen mucus Take Acetaminophen (Tylenol )or Ibuprofen as needed to reduce fever or discomfort Gargle with salt water and use throat sprays/lozenges for throat pain. Use heated, humidified air. If you do not have a humidifier, take hot showers. Limit spread to others: Wash hands frequently. Cover coughs and sneezes using the crook of your elbow. If you have a fever, stay home and away from others (self isolation) until fever-free for 72 hours (temperature should be less than 100 F without medication). She will be out of work until she completes antibiotic for bronchitis. She should be with mask until Sunday 04/15 Suspected COVID-19 virus infection 12/25/2022 11/11/2024 Asthma 12/05/2021 11/11/2024 Encounters Date Type Department Care Team Description 08/12/2025 Results Follow-Up [facility] & PEDS [address] [place] [address] Diane Diaz MD TSH W/Reflex to FT4, Basic Metabolic Panel, Lipid Panel, Standard 08/11/2025 10:00 AM EDT Office Visit [facility] [address] [place] [address] Diane Diaz MD Neck swelling (Primary Dx); Essential hypertension 08/11/2025 Travel 08/11/[address] [facility] MEDICINE [address] [place], [place] [phone] Cristina De La Cruz MD Nurse Triage from Last 3 Months Immunizations Immunization Administration Dates Next Due Hep B, adult 08/26/2019,07/22/2019 Influenza injectable quadrivalent preservative f ree 07/22/2019 MMR 07/22/2019 Pfizer Covid-19 Vaccine 12+ 07/20/2021, Tdap 07/22/2019 Social History Tobacco Use Types Packs/Day Years Used Date Smoking Tobacco: Every Day Cigarettes Passive Smoke Exposure: Current Tobacco Cessation:Ready to Q uit: Not Asked; Counseling Given: Not Answered Comments Unknown Sex and Gender Information Value Date Recorded Sex Assigned at Female 08/21/2022 10:35 AM EDT Legal Sex Female 10:35 AM EDT Gender Identity Female 08/21/2022 10:35 AM EDT Sexual Orientation Straight 08/21/2022 10 :35 AM EDT Last Filed Vital Signs Vital Sign Reading Time Taken Comments Blood Pressure 156/84 08/11/2025 10:16 AM EDT Pulse 85 08/11/2025 10:16 AM EDT Temperature 36.4 C (97.5 F) 08/11/2025 10:16 AM EDT Respiratory Rate 18 08/11/2025 10:16 AM EDT Oxygen Saturation 99% 05/13/2025 5:52 PM EDT Inhaled Oxygen Concentration - - Weight 99.3 kg (219 lb) 08/11/2025 10:16 AM EDT Height 162.6 cm (5' 4 ) 08/11/2025 10:16 AM EDT Body Mass Index 37.59 08/11/2025 10:16 AM EDT Plan of Treatment Upcoming Encounters Date Type Department Care Team (Late st Contact Info) Description 09/15/2025 10:30 AM EST Office Visit [facility] [address] [place] [address] Cristina De La Cruz MD [address] [place] [address] Health Maintenance Due Date Last Done Comments Depression Screening 1981 SDOH Screening 1981 Alcohol/Substance Use Screening 1993 Family Planning (PISQ) 1996 HPV Vaccines (1 - 3-dose series) 1996 Hepatitis A Vaccines (1 of 2 - Risk 2-dose series) 2000 Pneumococcal Vaccine: Pediatrics (0 to 5 Years) and At-Risk Patients (6 to 49) Years (1 of 2 - PCV) 2000 Pap Smear 2002 Hepatitis B Vaccines (3 of 3 - 19+ 3-dose series) 01/21/2020 08/26/2019, 07/22/2019 Cervical Cancer Screening 07/22/2024 HPV/Cotest 07/22/2024 07/22/2019 COVID-19 Vaccine (3 - 2024-2 6 season) 2025 07/20/2021, 03/06/2021 Influenza Vaccine (#1) 2025 07/22/2019 Mammogram 04/29/2026 04/29/2024 Disability Screening 05/06/2026 05/06/2025 Tobacco Screening 08/11/2026 08/11/2025 DTaP/Tdap/Td Vaccines (2 - T d or Tdap) 07/22/2029 07/22/2019 Lipid Panel 08/11/2030 08/11/2025, 11/07/2024 Zoster Vaccines (1 of 2) 2031 RSV Patients and Patients Aged 60 years or older (1 - 1-dose 75+ series) 2056 HIV Screening Completed 11/07/2024, 11/21/2022 HIB Vaccines Aged Out No longer eligi ble based on patient's age to complete this topic IPV Vaccines Aged Out No longer eligi ble based on patient's age to complete this topic Meningococcal B Vaccine Aged Out No l onger eligible based on patient's age to complete this topic Meningococcal Vaccine Aged Out No jp thais eligible based on patient's age to complete this topic RSV under 20 months Aged Out No longe r eligible based on patient's age to complete this topic Rotavirus Vaccines Aged Out No longer eligible based on patient's age to complete this topic Procedures Procedure Name Priority Date/Time Associated Diagnosis Comments LIPID PANEL, STANDARD Routine 08/11/2025 11:27 AM EDT Neck swelling BASIC METABOLIC PANEL Routine 08/11/2025 11:27 AM EDT Neck swelling TSH W/REFLEX TO FT4 Routine 08/11/2025 1 1:27 AM EDT Neck swelling HIV 1/2 ANTIGEN/ANTIBODY, FOURTH GENERATION W/RFL Routine 11/07/2024 2:42 PM EST Chronic hepatitis C without hepatic coma (CMS/HCC) BI MAMMOGRAM SCREENING TOMOSYNTHESIS BILATERAL Routine 04/29/2024 10:50 AM EDT ZZZ HISTORICAL HPV MRNA E6/E7 Routine 07/22/2019 3:52 PM EDT from Last 3 Months or Most Recently Relevant to Health Maintenance Results * TSH W/Reflex to FT4 (08/11/2025 11:27 AM EDT) TSH reflex Free T4 1.13 0.32 - 4.0 uIU/mL [facility] Blood Venous blood specimen / Unknown 08/11/2025 11:27 AM EDT 08/11/2025 2:21 PM EDT us Diane Diaz MD LAB BLOOD ORDERABLES Final Resul t [facility] [address] [place] [phone] * Lipid Panel, Standard (08/11/2025 11:27 AM EDT) Triglycerides 87 <150 mg/dL [facility] Comment:Desirable Triglyceri de: less than 150 mg/dLBorderline High Triglyceride 150-199 mg/dLHigh Triglyceride: 200-499 mg/dLVery High Triglyceride: greater than or equal to 5OO mg/dL Cholesterol 155 <200 mg/dL [facility] Comment:Desirable Cholestero l: less than 200 mg/dLBorderline High Cholesterol: 200-239 mg/dLHigh Cholesterol: greater than 239 mg/dL LDL Cholesterol Calculated 97 <100 mg/dL [facility] Comment:Desirable LDL: less than 100 mg/dLNear Optimal/Above Optimal LDL: 110- 129 mg/dLBorderline High LDL: 130-159 mg/dLHigh LDL: 160-189 mg/dLVery High LDL: greater than or equal to 190 mg/dL HDL Cholesterol 41 >40 mg/dL [facility] Comment:Desirable HDL: great er than 40 mg/dL Note: This HDL assay may give artificially low results in patients with liver disease. Blood Venous blood specimen / Unknown 08/11/2025 11:27 AM EDT 08/11/2025 2:21 PM EDT us Diane Diaz MD LAB BLOOD ORDERABLES Final Resul t [facility] [address] [place] [phone] * Basic Metabolic Panel (08/11/2025 11:27 AM EDT) Sodium 138 135 - 145 mmol/L [facility] Potassium 4.1 3.3 - 5.1 mmol/L [facility] Chloride 101 96 - 108 mmol/L [facility] Carbon Dioxide 29 22 - 29 mmol/L [facility] Anion Gap 12 12 - 20 [facility] Urea Nitrogen (BUN) 11 9 - 16 mg/dL [facility] Creatinine, Serum 0.63 0.5 - 1.4 mg/dL [facility] Estimated Glomerular Filt Rate >60 [facility] Comment:Chronic Kidney Disea se: Estimated GFR < 60 mL/min/1.19k8Wouelg Kidney Disease: Estimated GFR < 15 mL/min/1.73m2 Glucose 97 60 - 115 mg/dL [facility] Calcium 9.4 8.4 - 10.2 mg/dL [facility] Blood Venous blood specimen / Unknown 08/11/2025 11:27 AM EDT 08/11/2025 2:21 PM EDT us Diane Diaz MD LAB BLOOD ORDERABLES Final Resul t Performing Organization Address City/[facility]/ZIP Co de Phone Number [facility] [address] [place] [address] [phone] * HIV-1/2 Antigen and Antibodies, Fourth Generation, with Reflexes (11/07/2024 2:42 PM EST) HIV AB/AG Nonreactive Nonreactive [facility] Comment:HIV-1 p24 Ag and/or HIV-1/HIV-2 Ab not detected.A test result that is nonreactive does not exclude thepossibility of exposure to or infection with HIV-1 and/orHIV-2. Nonreactive results in this assay for individualswith prior exposure to HIV-1 and/or HIV-2 may be due toantigen and antibody levels that are below the limit ofdetection of this assay.The [employer] HIV Ag/Ab Combo assay result andsupplemental assay results should be interpreted inconjunction with the patient's clinical presentation,history and other laboratory results. If the results areinconsistent with clinical evidence, additional testing issuggested to confirm the result. Blood Venous blood specimen / Unknown 11/07/2024 2:42 PM EST 11/07/2024 4:00 PM EST us Cristina De La Cruz MD LAB BLOOD ORDERABLES Final Re sult Performing Organization Address City/[facility]/ZIP Co de Phone Number [facility] [address] [place] [phone] [phone] * BI Mammogram Screening Tomosynthesis Bilateral (04/29/2024 10:50 AM EDT) Anatomical Region Laterality Modality Breast Bilateral Mammography 04/29/2024 10:5 0 AM EDT Narrative 05/26/2024 10:17 PM EDT [address] [place] [address] Mammography Report Signed Patient: Char Hester MR#: [id number] : 1980 Acct:[id number] Age/Sex: 43 / F ADM Date: 04/29/24 Loc: NIA Attending Dr: Cristina De La Cruz MD Ordering Physician: Cristina De La Cruz MD Results: 1Ne gative Date of Service: 04/29/24 Follow Up: 1 Year From Orig inal Mammogram Procedure(s): MM tomosynthesis screening BI Accession Number(s): [id number] cc: Cristina De La Cruz MD EXAMINATION: MM SCREENING DIGITAL BREAST TOMOSYNTHESIS, BILATERAL CLINICAL INFORMATION: Screening. Asymptomatic. COMPARISON: Mammography: This is a baseline mammogram TECHNIQUE: Digital breast tomosynthesis is performed in both the craniocaudal and mediolateral oblique views along with computer-aided detection (CAD). Synthesized 2D images are generated from the tomosynthesis. FINDINGS: The breasts are almost entirely fatty (ACR BI-RADS breast composition Category a). There are no significant masses, abnormal calcifications, or other abnormalities. MM/MM tomosynthesis screening BI IMPRESSION: No mammographic evidence of malignancy. ASSESSMENT: BI-RADS BI-RADS 1 - Negative RECOMMENDATION: Routine annual mammography screening. 1 year F/U This examination should not preclude the clinical evaluation of a suspicious palpable abnormality. This patient's information was entered into a reminder system with a target due date for their next mammogram. Dictated By: Donna Strange MD Signed By: <Electronically signed by Donna Strange MD in OV> 05/26/24 2213 DD/ 1050 TD/TT: Tool Crib Manager: Procedure Note Donotuseinterpreter, Image - 05/26/[address] [place] [address] Mammography Report Signed Patient: Char HesterMR#: [id number] : 1980Acct:[id number] Age/Sex: 43 / FADM Date: 04/29/24 Loc: HOShayleeMAMMO Attending Dr: Cristina De La Cruz MD Ordering Physician: Cristina De La Cruz MDResults: 1Ne gative Date of Service: 04/29/24Follow Up: 1 Year From Orig inal Mammogram Procedure(s): MM tomosynthesis screening BI Accession Number(s): [id number] cc: Cristina De La Cruz MD EXAMINATION: MM SCREENING DIGITAL BREAST TOMOSYNTHESIS, BILATERAL CLINICAL INFORMATION: Screening. Asymptomatic. COMPARISON: Mammography: This is a baseline mammogram TECHNIQUE: Digital breast tomosynthesis is performed in both the craniocaudal and mediolateral oblique views along with computer-aided detection (CAD). Synthesized 2D images are generated from the tomosynthesis. FINDINGS: The breasts are almost entirely fatty (ACR BI-RADS breast composition Category a). There are no significant masses, abnormal calcifications, or other abnormalities. MM/MM tomosynthesis screening BI IMPRESSION: No mammographic evidence of malignancy. ASSESSMENT: BI-RADS BI-RADS 1 - Negative RECOMMENDATION: Routine annual mammography screening. 1 year F/U This examination should not preclude the clinical evaluation of a suspicious palpable abnormality. This patient's information was entered into a reminder system with a target due date for their next mammogram. Dictated By: Donna Strange MD Signed By: <Electronically signed by Donna Strange MD in OV> 05/26/24 2213 DD/ 1050 TD/TT: Tool Crib Manager: us Cristina De La Cruz MD IMG BI PROCEDURES Final Resul t * HPV mRNA E6/E7 (07/22/2019 3:52 PM EDT) HPV mRNA E6/E7 Not Detected NOT DETECTED [facility] Comment: This test was performed using the APTIMA(R) HPV Assay ([employer] This assay detects E6/E7 viral messenger RNA (mRNA) from 14 high-risk HPV types (16,18,31,33,35,39,45,51, 52,56,58,59,66,68). For additional information please refer to: http://education.[employer].Bloc/faq/OXY804m2 (This link is being provided for informational/ educational purposes only.) The analytical performance characteristics of this assay have been determined by [employer] [place], [place]. The modifications have not been cleared or approved by the FDA. This assay has been validated pursuant to the CLIA regulations and is used for clinical purposes. Test Performed by [facility], [employer] [place], [address] [place] [address] Michel Fleming M.D., Ph.D., Director of Laboratories , CLIA [id number] Please note: Effective 07/03/2016, HPV testing will be performed using [employer]'s APTIMA test which targets mRNA. Detecting mRNA instead of DNA, as in older methods, offers significant improvements in specificity. 07/22/2019 3:52 PM EDT Renuka Delacruz CNM HISTORICAL/NON ORDERABLE LABS Final Result [facility] Anywhere [address] from Last 3 Months or Most Recently Relevant to Health Maintenance Insurance [facility] C3 [employer] * Guarantor: Char Hester Account Type Relation to Patient Date of Phone Billing Address Personal/Family Self [address] [place] [id number] Care Teams Network Support Engineer Relationship Specialty Start Date End Date Cristina De La Cruz MD [address] [facility] [place] [address] PCP - General Family Medicine 05/21/19
--- OUTSIDE RECORDS SUMMARY | 2025-08-19 13:43 | XMS_ITS | Encounter Summary ---
Author Organization [employer] Address [address] [place] [address] [address] [place] [address] Care Team Providers Care Electrical Service Technician Name Role Phone Cristina De La Cruz MD Primary Care Provider [phone] Encounter Details Date Type Department Care Team ([facility] Contact Info) Description 04/16/2024 Orders Only [facility] MED & PEDS [address] [place], [place] [phone] Faina Benavides FNP [address] [place] [address] Social History Tobacco Use Types Packs/Day Years Used Date Smoking Tobacco: Every Day Cigarettes Passive Smoke Exposure: Current Comments Unknown Sex and Gender Information Value Date Recorded Sex Assigned at Female 08/21/2022 10:35 AM EDT Legal Sex Female 10:35 AM EDT Gender Identity Female 08/21/2022 10:35 AM EDT Sexual Orientation Straight 08/21/2022 10 :35 AM EDT documented as of this encounter Plan of Treatment Upcoming Encounters Date Type Department Care Team ([facility] Contact Info) Description 09/15/2025 10:30 AM EST Office Visit [facility] MED & PEDS [address] [place], [place] [phone] Cristina De La Cruz MD [address] [place] [address] documented as of this encounter Procedures Procedure Name Priority Date/Time Associated Diagnosis Comments BI MAMMOGRAM SCREENING TOMOSYNTHESIS BILATERAL Routine 04/29/2024 10:50 AM EDT documented in this encounter Results * BI Mammogram Screening Tomosynthesis Bilateral (04/29/2024 10:50 AM EDT) Anatomical Region Laterality Modality Breast Bilateral Mammography 04/29/2024 10:5 0 AM EDT Narrative 05/26/2024 10:17 PM EDT [address] [place], [place] [address] Mammography Report Signed Patient: Char Hester MR#: [id number] : 1980 Acct:[id number] Age/Sex: 43 / F ADM Date: 04/29/24 Loc: HO.MAMMO Attending Dr: Cristina De La Cruz MD Ordering Physician: Cirstina De La Cruz MD Results: 1Ne gative Date of Service: 04/29/24 Follow Up: 1 Year From Orig inal Mammogram Procedure(s): MM tomosynthesis screening BI Accession Number(s): [id number] cc: Cristina De La Cruz MD EXAMINATION: [...] in OV> 05/26/24 2213 DD/ 1050 TD/TT: Show Girl: Procedure Note Donotuseinterpreter, Image - 05/26/2024 [place] [facility] [address] [place] [address] Mammography Report Signed Patient: Char HesterMR#: [id number] : 1980Acct:[id number] Age/Sex: 43 / FADM Date: 04/29/24 Loc: HO.MAMMO Attending Dr: Cristina De La Cruz MD Ordering Physician: Cristina De La Cruz MDResults: 1Ne gative Date of Service: 04/29/24Follow Up: 1 Year From Orig inal Mammogram Procedure(s): MM tomosynthesis screening BI Accession Number(s): [id number] cc: Cristina De La Cruz MD EXAMINATION: [...] in OV> 05/26/24 2213 DD/ 1050 TD/TT: Show Girl: us Cristina De La Cruz MD IMG BI PROCEDURES Final Resul t documented in this encounter Visit Diagnoses Not on filedocumented in this encounter Care Teams Electrical Service Technician Relationship Specialty Start Date End Date Cristina De La Cruz MD [address] [place] [phone] PCP - General Family Medicine 05/21/19 documented as of this encounter
--- OUTSIDE RECORDS SUMMARY | 2025-08-19 13:43 | XMS_ITS | Encounter Summary ---
Author Organization [employer] Address [address] [place] [address] [address] [place] [address] Care Team Providers Care Corporate Communications Specialist Name Role Phone Cristina De La Cruz MD Primary Care Provider [phone] Encounter Details Date Type Department Care Team (Late st Contact Info) Description 08/12/2025 Results Follow-Up [facility] MED & PEDS [address] [place] [address] Diane Diaz MD [address] [place] [address] TSH W/Reflex to FT4, Basic Metabolic Panel, Lipid Panel, Standard Social History Tobacco Use Types Packs/Day Years [...] as of this encounter Miscellaneous Notes * Result Encounter Note - Diane Diaz MD - 08/12/2025 8:49 AM EDT Labs WNL documented in this encounter Plan of Treatment Upcoming Encounters Date Type Department Care Team (Late st Contact Info) Description 09/15/2025 10:30 AM EST Office Visit [facility] MED [facility] PEDS [address] [place] [address] Cristina De La Cruz MD [address] [place] [address] documented as of this encounter Visit Diagnoses Not on filedocumented in this encounter Care Teams Corporate Communications Specialist Relationship Specialty Start Date End Date Cristina De La Cruz MD [address] [place] [address] PCP - General Family Medicine 05/21/19 documented as of this encounter
--- OUTSIDE RECORDS SUMMARY | 2025-08-19 13:43 | XMS_ITS | Encounter Summary ---
Author Organization [employer] Address [address] [place] [address] [place] [address] Care Team Providers Care Race Steward Name Role Phone Cristina De La Cruz MD Primary Care Provider Reason for Visit * Reason Onset Date Comments Nurse Triage 04/14/2024 Encounter Details Date Type Department Care Team ([facility] st Contact Info) Description 04/14/2024 Telephone [facility] PEDS [address] [place], [place] [phone] Cristina De La Cruz MD [address] [place] [address] Nurse Triage Social History Tobacco Use Types Packs/Day Years [...] encounter Miscellaneous Notes * Telephone Encounter - Gillian Montalvo RN - 04/14/2024 3:03 PM EDT Telephone call returned to patient in regards to below message. Patient feels as though sh cannot go to hospital for special care and would like a televist. Patient given appointment for 04/15 at 11:30. Patient verbalized understanding and denied having any further questions or concerns at this time. * Telephone Encounter - Janessa Anthony, BELLE - 04/14/2024 12:03 PM EDT Triage call returned to patient who reports that she is having increased asthma symptoms that started last Sunday. Worse on and did not go to work thru the weekend. Is ok when I am doingnothing has cough no phlegm some wheezing and is using albuterol inhaler frequently. No acute shortness of breath and is speaking in full sentences. Wants prednisone called in . Reviewed need for evaluation. Patient verbalized understanding. Disposition reviewed with patient in agreement with plan. No PCP or Team appts. Available at time of call. [facility] hours and availability provided for patient evaluation. Triage nurse informed the patient may have a wait of 1-2 hours because Walk In Clinic may have delays due to patient volume or symptom acuity. Insurance verified as active. Team tasked to follow with patient if prednisone made available. Multiple (2) protocols were used on this call. Disposition for Call: Go to Urgent Care Now Protocol Used: Asthma Attack (Adult) Protocol-Based Disposition: See in Office or Video Visit Today Override (Final) Disposition: Go to Urgent Care Now Override Reason: No appointments available Video visit offer not recorded Positive Triage Question: * Continuous (nonstop) coughing that keeps patient from working or sleeping, and not improved after2 or 3 inhaler or nebulizer treatments given 20 minutes apart * All higher-acuity triage questions were negative Care Advice Discussed: * Asthma Attack - Symptoms * Drink Plenty of Liquids and Use a Humidifier * Hay Fever and Antihistamine Medicines * Avoid Asthma Triggers * Remove Allergens * Reasons To Call Back - An asthma attack is not better after 2 or 3 quick-relief treatments (such as albuterol by inhaleror nebulizer) 20 minutes apart. - Quick-relief asthma medicine (such as albuterol by inhaler or nebulizer) is needed more often than every 4 hours - Mild asthma symptoms not better after 24 hours - Mild wheezing or other asthma symptoms come and go for more than 3 days - You become worse Protocol Used: Medication Question Call (Adult) Protocol-Based Disposition: See in Office or Video Visit within 3 Days Override (Final) Disposition: Discuss with PCP and Callback by Nurse Today Override Reason: No appointments available Positive Triage Question: * Prescription request for new medicine (not a refill) * All higher-acuity triage questions were negative * Telephone Encounter - Rosemarie Spicer - 04/14/2024 11:29 AM EDT Symptom: Breathing Trouble does have asthma Outcome: Schedule an urgent appointment (within 1 hour) or talk to a nurse or provider soon Reason: Caller denied all higher acuity questions The caller accepted this outcome documented in this encounter Plan of Treatment Upcoming Encounters Date Type Department Care Team ([facility] st Contact Info) Description 09/15/2025 10:30 AM EST Office Visit [facility] MED [facility] PEDS [address] [place] [address] Cristina De La Cruz MD [address] [place] [address] documented as of this encounter Visit Diagnoses Diagnosis Moderate persistent asthma with exacerbation Unspecified asthma, with exacerbation documented in this encounter Care Teams Race Steward Relationship Specialty Start Date End Date Cristina De La Cruz MD [address] [place] [address] PCP - General Family Medicine 05/21/19 documented as of this encounter
--- OUTSIDE RECORDS SUMMARY | 2025-08-19 13:43 | XMS_ITS | Encounter Summary ---
Author Organization [employer] Address [address] [place] [address] Care Team Providers Care Business Development Name Role Phone Cristina eD La Cruz MD Primary Care Provider [phone] Reason for Visit * Reason Onset Date Comments Referral 08/22/2023 Encounter Details Date Type Department Care Team ([facility] Contact Info) Description 08/22/2023 Telephone [facility] MEDICINE [address] [place], [place] [phone] Cristina De La Cruz MD [address] [place] [address] Referral Social History Tobacco Use Types Packs/Day Years Used Date Smoking Tobacco: Every Day Cigarettes Comments Unknown Sex and Gender Information Value Date Recorded Sex Assigned at Female 08/21/2022 10:35 AM EDT Legal Sex Female 10:35 AM EDT Gender Identity Female 08/21/2022 10:35 AM EDT Sexual Orientation Straight 08/21/2022 10 :35 AM EDT documented as of this encounter Miscellaneous Notes * Telephone Encounter - Adry Waters - 08/22/2023 2:41 PM EDT Tc from pt requesting to add visits on Physical Therapy referral. Any questions contact pt documented in this encounter Plan of Treatment Upcoming Encounters Date Type Department Care Team ([facility] Contact Info) Description 09/15/2025 10:30 AM EST Office Visit [facility]S [address] [place], [place] [phone] Cristina De La Cruz MD [address] [place] [address] documented as of this encounter Visit Diagnoses Not on filedocumented in this encounter Care Teams Business Development Relationship Specialty Start Date End Date Cristina De La Cruz MD [address] [place] [address] PCP - General Family Medicine 05/21/19 documented as of this encounter
--- OUTSIDE RECORDS SUMMARY | 2025-08-19 13:43 | XMS_ITS | Clinical Summary ---
Author Organization [facility] ity Address [address] [place] [address] Care Team Providers Care Foster Care Worker Name Role Phone Unavailable Primary Care Provider [...] Cervical Cancer Screening: P ap Smear 2002 HPV Vaccines (1 - 3-dose SCD M series) 2008 Depression Screening 10/22/2024 COVID-19 Vaccine ( - 2023-2 5 season) 2025 Influenza Vaccine (#1) 2025 RSV Immunization Adult Patie nts (1 - 1-dose 75+ series) 2056 HIB Vaccines Aged Out No longer eligi [...]
== END 2025-08-19 11:37 | disposition home or self-care (01) ==
LOC: HO.HSM 10:52
PROVIDERS: PCP Pediatrics; Visit Provider Psychiatry & Neurology Neurology
DX: G37.9 Demyelinating disease of central nervous system, unspecified (principal); R20.0 Anesthesia of skin; F11.91 Opioid use, unspecified, in remission; K73.9 Chronic hepatitis, unspecified
CPT/HCPCS: 99203

== ENCOUNTER → 2025-08-19 10:52 | Outpatient (BNVA) | payer MEDICAID, SELFPAY | PROVIDERS: PCP Pediatrics; Visit Provider Psychiatry & Neurology Neurology | DX: G37.9 Demyelinating disease of central nervous system, unspecified (principal); R20.0 Anesthesia of skin; K73.9 Chronic hepatitis, unspecified; F11.91 Opioid use, unspecified, in remission | CPT/HCPCS: 99202 ==

== ENCOUNTER 2025-09-08 18:30 | Outpatient (REF) | payer MEDICAID, SELFPAY ==
--- NOTE | ~2025-09-08 | MR_ITS ---
EXAMINATION: MR BRAIN WITHOUT CONTRAST CLINICAL INFORMATION: G 37.9. Demyelinating disease of central nervous system. COMPARISON: None available. TECHNIQUE: MRI of the brain was obtained using routine sequences without contrast. FINDINGS: No restricted diffusion. No acute intracranial hemorrhage, mass effect, midline shift, hydrocephalus or herniation. Gotti-white matter differentiation is normal. No signal abnormality within the pericallosal interface. Sellar/suprasellar region is normal. Craniocervical junction is intact with borderline position of the cerebellar tonsils. Posterior cranial fossa contents demonstrated no signal abnormality or mass effect. Flow-void signal within the main cerebral vessels is normal. MR/MR cervical spine wo con IMPRESSION: No acute brain abnormality. No demyelinating plaques. Borderline position cerebellar tonsils. EXAMINATION: MR CERVICAL SPINE WITHOUT CONTRAST CLINICAL INFORMATION: G 37.9. Demyelinating disease of central nervous system. COMPARISON: None available. TECHNIQUE: MRI of the cervical spine was obtained using routine sequences without contrast. FINDINGS: Craniocervical junction is intact. Borderline position of the cerebellar tonsils. No bone marrow STIR signal abnormality. Marginal osteophyte formation and disc desiccation at C5-6 and to a lesser extent C6-7. Reverse curvature apex at C5-6. There is normal alignment. Cervical spinal cord signal is normal. C2-3: No disc herniation. No neuroforamina stenosis. C3-4: Broad-based disc osteophyte complex formation. No cord compression. No neuroforamina stenosis. C4-5: Broad-based disc osteophyte complex formation abutting the thecal sac. No cord compression. Left neuroforamina narrowing. C5-6: Broad-based disc osteophyte complex formation resulting in CSF effacement of the thecal sac and flattening of the spinal cord. No or signal abnormality. Bilateral, right greater than left neuroforamina narrowing. Hypertrophy of ligamentum flavum. C6-7: Broad-based disc osteophyte complex formation resulting in ventral deformity and CSF effacement of the thecal. Hypertrophy of ligamentum flavum. C7-T1: No disc herniation. No neuroforamina stenosis. No prevertebral compartment hematoma, mass or fluid collection. Flow-void signal within the mean vessels is normal. Codominant vertebral arteries IMPRESSION: No demyelinating plaques, cervical spinal cord. Multilevel cervical spondylosis C3-4 to C6-7 pronounced at C5-6, C6-7 and to a lesser extent C4-5. No cord compression, cord edema and or myelopathy. Electronically signed by: Rocael Isidro MD 09/09/2025 06:57 AM SANTANA
--- OUTSIDE RECORDS SUMMARY | 2025-09-09 13:46 | XMS_ITS | Encounter Summary ---
Author Organization [employer] Address [address] [place] [address] [place] [address] Care Team Providers Care Cook Station Name Role Phone Cristina De La Cruz MD Primary Care Provider [phone] Reason for Visit * Reason Onset Date Comments Nurse Triage 04/14/2024 Encounter Details Date Type Department Care Team ([facility] st Contact Info) Description 04/14/2024 Telephone [facility] MED [facility] PEDS [address] [place], [place] [phone] Cristina De La Cruz MD [address] [place] [address] Nurse Triage Social History Tobacco Use Types [...] feels as though sh cannot go to [facility] and would like a televist. Patient given [...] Team appts. Available at time of call. [facility] In [facility] hours and availability provided [...] Upcoming Encounters Date Type Department Care Team ([facility] st Contact Info) Description 09/15/2025 10:30 AM EST Office Visit [facility] MED & PEDS [address] [place] [address] Cristina De La Cruz MD [address] [place] [address] documented as of this encounter Visit Diagnoses Diagnosis Moderate persistent asthma with exacerbation Unspecified asthma, with exacerbation documented in this encounter Care Teams Cook Station Relationship Specialty Start Date End Date Cristina De La Cruz MD [address] [place] [address] PCP - General Family Medicine 05/21/19 documented as of this encounter
--- OUTSIDE RECORDS SUMMARY | 2025-09-09 13:46 | XMS_ITS | Encounter Summary ---
Author Organization [employer] Address [address] [place] [address] [address] [place] [address] Care Team Providers Care Industrial Maintenance Millwright Name Role Phone Cristina De La Cruz MD Primary Care Provider [phone] Encounter Details Date Type Department Care Team ([facility] Contact Info) Description 04/16/2024 Orders Only [facility] MED & PEDS [address] [place], [place] [phone] Faina Benavides FNP [address] [place] [address] Social History Tobacco Use Types Packs/Day Years [...] Upcoming Encounters Date Type Department Care Team ([facility] Contact Info) Description 09/15/2025 10:30 AM EST Office Visit [facility] MED & PEDS [address] [place], [place] [phone] Cristina De La Cruz MD [address] [place] [address] documented as of this encounter Procedures Procedure Name Priority Date/Time Associated Diagnosis Comments BI MAMMOGRAM SCREENING TOMOSYNTHESIS BILATERAL Routine 04/29/2024 10:50 AM EDT documented in this encounter Results * BI Mammogram Screening Tomosynthesis Bilateral (04/29/2024 10:50 AM EDT) Anatomical Region Laterality Modality Breast Bilateral Mammography 04/29/2024 10:5 0 AM EDT Narrative 05/26/2024 10:17 PM EDT [address] [place], [place] [address] Mammography Report Signed Patient: Char Hester MR#: [id number] : 1980 Acct:[id number] Age/Sex: 43 / F ADM Date: 04/29/24 Loc: HO.MAMMO Attending Dr: Cristina De La Cruz MD Ordering Physician: Cristina De La Cruz MD Results: 1Ne gative Date of Service: 04/29/24 Follow Up: 1 Year From Orig inal Mammogram Procedure(s): MM tomosynthesis screening BI Accession Number(s): [id number] cc: Cristina De La Cruz MD EXAMINATION: [...] in OV> 05/26/24 2213 DD/ 1050 TD/TT: Corporate Wellness Coordinator: Procedure Note Donotuseinterpreter, Image - 05/26/2024 Eileen [facility] [address] [place] [address] Mammography Report Signed Patient: Char HesterMR#: [id number] : 1980Acct:[id number] Age/Sex: 43 / FADM Date: 04/29/24 Loc: HO.MAMMO Attending Dr: Cristina De La Cruz MD Ordering Physician: Cristina De La Cruz MDResults: 1Ne gative Date of Service: 04/29/24Follow Up: 1 Year From Orig inal Mammogram Procedure(s): MM tomosynthesis screening BI Accession Number(s): [id number] cc: Cristina De La Cruz MD EXAMINATION: [...] in OV> 05/26/24 2213 DD/ 1050 TD/TT: Corporate Wellness Coordinator: us Cristina De La Cruz MD IMG BI PROCEDURES Final Resul t documented in this encounter Visit Diagnoses Not on filedocumented in this encounter Care Teams Industrial Maintenance Millwright Relationship Specialty Start Date End Date Cristina De La Cruz MD [address] [place] [address] PCP - General Family Medicine 05/21/19 documented as of this encounter
--- OUTSIDE RECORDS SUMMARY | 2025-09-09 13:46 | XMS_ITS | Encounter Summary ---
Author Organization [employer] Address [address] [place] [address] Care Team Providers Care Continuous Absorption Process Operator Name Role Phone Cristina De La Cruz MD Primary Care Provider [phone] Reason for Visit * Reason Onset Date Comments Referral 08/22/2023 Encounter Details Date Type Department Care Team ([facility] Contact Info) Description 08/22/2023 Telephone [facility] MEDICINE [address] [place], [place] [phone] Cristina De La Cruz MD [address] [place] [address] Referral Social History Tobacco Use Types Packs/Day [...] Upcoming Encounters Date Type Department Care Team ([facility] Contact Info) Description 09/15/2025 10:30 AM EST Office Visit [facility] MED & PEDS [address] [place], [place] [phone] Cristina De La Cruz MD [address] [place] [address] documented as of this encounter Visit Diagnoses Not on filedocumented in this encounter Care Teams Continuous Absorption Process Operator Relationship Specialty Start Date End Date Cristina De La Cruz MD [address] [place] [address] PCP - General Family Medicine 05/21/19 documented as of this encounter
--- OUTSIDE RECORDS SUMMARY | 2025-09-09 13:46 | XMS_ITS | Encounter Summary ---
Author Organization [employer] Address [address] [facility] 7 [place] [address] Care Team Providers Care Electronic Science Teacher Name Role Phone Cristina De La Cruz MD Primary Care Provider [phone] Reason for Visit * Reason Onset Date Comments Letter for School/Work 09/24/2023 Encounter Details Date Type Department Care Team ([facility] st Contact Info) Description 09/24/2023 Telephone [facility] MEDICINE [address] [place] [address] Cristina De La Cruz MD [address] [place] [address] Letter for School/Work Social History Tobacco Use [...] Upcoming Encounters Date Type Department Care Team ([facility] st Contact Info) Description 09/15/2025 10:30 AM EST Office Visit [facility] MED & PEDS [address] [place] [address] Cristina De La Cruz MD [address] [place] [address] documented as of this encounter Visit Diagnoses Not on filedocumented in this encounter Care Teams Electronic Science Teacher Relationship Specialty Start Date End Date Cristina De La Cruz MD [address] [place] [address] PCP - General Family Medicine 05/21/19 documented as of this encounter
--- OUTSIDE RECORDS SUMMARY | 2025-09-09 13:46 | XMS_ITS | Encounter Summary ---
Author Organization [employer] Address [address] [place] [address] [place] [address] Care Team Providers Care Drier Transfer Car Operator Name Role Phone Cristina De La Cruz MD Primary Care Provider [phone] Encounter Details Date Type Department Care Team (Late st Contact Info) Description 09/08/2025 Orders Only [facility] External Provider, [facility] Social History Tobacco Use Types Packs/Day Years [...] Description 09/15/2025 10:30 AM EST Office Visit [facility] [address] [place] [address] Cristina De La Cruz MD [address] [place] [address] documented as of this encounter Procedures Procedure Name Priority Date/Time Associated Diagnosis Comments MR CERVICAL SPINE WO CONTRAST Routine 09/08/2025 6:36 PM EST MR BRAIN WO CONTRAST Routine 09/08/2025 6:36 PM EST documented in this encounter Results * MR Brain w/o Contrast (09/08/2025 6:36 PM EST) Anatomical Region Laterality Modality Brain Magnetic Resonan ce 09/08/2025 6:36 PM EST Narrative 09/09/2025 7:00 AM EST [address] [address] Magnetic Resonance Report Signed Patient: Char Hester MR#: [id number] : 1980 Acct:[id number] Age/Sex: 45 / F ADM Date: 09/08/25 Loc: HO.MRI Attending Dr: Vikki Nina MD Ordering Physician: Vikki Nina MD Date of Service: 09/08/25 Procedure(s): MR head/brain wo con Accession Number(s): [id number] cc: Cristina De La Cruz MD; Vikki Nina MD Reason for Exam: G37.9 - Demyelinating disease of central nervous system, unspecified EXAMINATION: MR BRAIN WITHOUT CONTRAST CLINICAL INFORMATION: G 37.9. Demyelinating disease of central nervous system. COMPARISON: None available. TECHNIQUE: MRI of the brain was obtained using routine sequences without contrast. FINDINGS: No restricted diffusion. No acute intracranial hemorrhage, mass effect, midline shift, hydrocephalus or herniation. Gotti-white matter differentiation is normal. No signal abnormality within the pericallosal interface. Sellar/suprasellar region is normal. Craniocervical junction is intact with borderline position of the cerebellar tonsils. Posterior cranial fossa contents demonstrated no signal abnormality or mass effect. Flow-void signal within the main cerebral vessels is normal. MR/MR head/brain wo con IMPRESSION: No acute brain abnormality. No demyelinating plaques. Borderline position cerebellar tonsils. EXAMINATION: MR CERVICAL SPINE WITHOUT CONTRAST CLINICAL INFORMATION: G 37.9. Demyelinating disease of central nervous system. COMPARISON: None available. TECHNIQUE: MRI of the cervical spine was obtained using routine sequences without contrast. FINDINGS: Craniocervical junction is intact. Borderline position of the cerebellar tonsils. No bone marrow STIR signal abnormality. Marginal osteophyte formation and disc desiccation at C5-6 and to a lesser extent C6-7. Reverse curvature apex at C5-6. There is normal alignment. Cervical spinal cord signal is normal. C2-3: No disc herniation. No neuroforamina stenosis. C3-4: Broad-based disc osteophyte complex formation. No cord compression. No neuroforamina stenosis. C4-5: Broad-based disc osteophyte complex formation abutting the thecal sac. No cord compression. Left neuroforamina narrowing. C5-6: Broad-based disc osteophyte complex formation resulting in CSF effacement of the thecal sac and flattening of the spinal cord. No or signal abnormality. Bilateral, right greater than left neuroforamina narrowing. Hypertrophy of ligamentum flavum. C6-7: Broad-based disc osteophyte complex formation resulting in ventral deformity and CSF effacement of the thecal. Hypertrophy of ligamentum flavum. C7-T1: No disc herniation. No neuroforamina stenosis. No prevertebral compartment hematoma, mass or fluid collection. Flow-void signal within the mean vessels is normal. Codominant vertebral arteries IMPRESSION: No demyelinating plaques, cervical spinal cord. Multilevel cervical spondylosis C3-4 to C6-7 pronounced at C5-6, C6-7 and to a lesser extent C4-5. No cord compression, cord edema and or myelopathy. Electronically signed by: Rocael Isidro MD 09/09/2025 06:57 AM EST Dictated By: Rocael Dean MD Signed By: <Electronically signed by Rocael Comer MD in OV> 09/09/25 0657 DD/ 1836 TD/TT: 09/08/25 1857 Wood Box Maker: Procedure Note Donotuseinterpreter, Image - 09/09/[address] [address] Magnetic Resonance Report Signed Patient: Char HesterMR#: [id number] : 1980Acct:[id number] Age/Sex: 45 / FADM Date: 09/08/25 Loc: HO.MRI Attending Dr: Vikki Nina MD Ordering Physician: Vikki Nina MD Date of Service: 09/08/25 Procedure(s): MR head/brain wo con Accession Number(s): [id number] cc: Cristina De La Cruz MD; Vikki Nina MD Reason for Exam: G37.9 - Demyelinating disease of central nervous system,unspecified EXAMINATION: MR BRAIN WITHOUT CONTRAST CLINICAL INFORMATION: G 37.9. Demyelinating disease of central nervous system. COMPARISON: None available. TECHNIQUE: MRI of the brain was obtained using routine sequences without contrast. FINDINGS: No restricted diffusion. No acute intracranial hemorrhage, mass effect, midline shift, hydrocephalus or herniation. Gotti-white matter differentiation is normal. No signal abnormality within the pericallosal interface. Sellar/suprasellar region is normal. Craniocervical junction is intact with borderline position of the cerebellar tonsils. Posterior cranial fossa contents demonstrated no signal abnormality or mass effect. Flow-void signal within the main cerebral vessels is normal. MR/MR head/brain wo con IMPRESSION: No acute brain abnormality. No demyelinating plaques. Borderline position cerebellar tonsils. EXAMINATION: MR CERVICAL SPINE WITHOUT CONTRAST CLINICAL INFORMATION: G 37.9. Demyelinating disease of central nervous system. COMPARISON: None available. TECHNIQUE: MRI of the cervical spine was obtained using routine sequences without contrast. FINDINGS: Craniocervical junction is intact. Borderline position of the cerebellar tonsils. No bone marrow STIR signal abnormality. Marginal osteophyte formation and disc desiccation at C5-6 and to a lesser extent C6-7. Reverse curvature apex at C5-6. There is normal alignment. Cervical spinal cord signal is normal. C2-3: No disc herniation. No neuroforamina stenosis. C3-4: Broad-based disc osteophyte complex formation. No cord compression. No neuroforamina stenosis. C4-5: Broad-based disc osteophyte complex formation abutting the thecal sac. No cord compression. Left neuroforamina narrowing. C5-6: Broad-based disc osteophyte complex formation resulting in CSF effacement of the thecal sac and flattening of the spinal cord. No or signal abnormality. Bilateral, right greater than left neuroforamina narrowing. Hypertrophy of ligamentum flavum. C6-7: Broad-based disc osteophyte complex formation resulting in ventral deformity and CSF effacement of the thecal. Hypertrophy of ligamentum flavum. C7-T1: No disc herniation. No neuroforamina stenosis. No prevertebral compartment hematoma, mass or fluid collection. Flow-void signal within the mean vessels is normal. Codominant vertebral arteries IMPRESSION: No demyelinating plaques, cervical spinal cord. Multilevel cervical spondylosis C3-4 to C6-7 pronounced at C5-6, C6-7 and to a lesser extent C4-5. No cord compression, cord edema and or myelopathy. Electronically signed by: Rocael Isidro MD 09/09/2025 06:57 AM EST RP Dictated By: Rocael Dean MD Signed By: <Electronically signed by Rocael Comer MDin OV> 09/09/25 0657 DD/ 35 TD/TT: 09/08/25 185 Wood Box Maker: [facility] External Provider IMG MRI PROCEDURES Final Result * MR Cervical Spine w/o Contrast (09/08/2025 6:36 PM EST) Anatomical Region Laterality Modality Spine, C-spine Magnetic Resonan ce 09/08/2025 6:36 PM EST Narrative 09/09/2025 7:00 AM EST [place] [address] Magnetic Resonance Report Signed Patient: Char Hester MR#: [id number] : 1980 Acct:[id number] Age/Sex: 45 / F ADM Date: 09/08/25 Loc: HO.MRI Attending Dr: Vikki Nina MD Ordering Physician: Vikki Nina MD Date of Service: 09/08/25 Procedure(s): MR cervical spine wo con Accession Number(s): [id number] cc: Cristina De La Cruz MD; Vikki Nina MD Reason for Exam: G37.9 - Demyelinating disease of central nervous system, unspecified EXAMINATION: MR BRAIN WITHOUT CONTRAST CLINICAL INFORMATION: G 37.9. Demyelinating disease of central nervous system. COMPARISON: None available. TECHNIQUE: MRI of the brain was obtained using routine sequences without contrast. FINDINGS: No restricted diffusion. No acute intracranial hemorrhage, mass effect, midline shift, hydrocephalus or herniation. Gotti-white matter differentiation is normal. No signal abnormality within the pericallosal interface. Sellar/suprasellar region is normal. Craniocervical junction is intact with borderline position of the cerebellar tonsils. Posterior cranial fossa contents demonstrated no signal abnormality or mass effect. Flow-void signal within the main cerebral vessels is normal. MR/MR cervical spine wo con IMPRESSION: No acute brain abnormality. No demyelinating plaques. Borderline position cerebellar tonsils. EXAMINATION: MR CERVICAL SPINE WITHOUT CONTRAST CLINICAL INFORMATION: G 37.9. Demyelinating disease of central nervous system. COMPARISON: None available. TECHNIQUE: MRI of the cervical spine was obtained using routine sequences without contrast. FINDINGS: Craniocervical junction is intact. Borderline position of the cerebellar tonsils. No bone marrow STIR signal abnormality. Marginal osteophyte formation and disc desiccation at C5-6 and to a lesser extent C6-7. Reverse curvature apex at C5-6. There is normal alignment. Cervical spinal cord signal is normal. C2-3: No disc herniation. No neuroforamina stenosis. C3-4: Broad-based disc osteophyte complex formation. No cord compression. No neuroforamina stenosis. C4-5: Broad-based disc osteophyte complex formation abutting the thecal sac. No cord compression. Left neuroforamina narrowing. C5-6: Broad-based disc osteophyte complex formation resulting in CSF effacement of the thecal sac and flattening of the spinal cord. No or signal abnormality. Bilateral, right greater than left neuroforamina narrowing. Hypertrophy of ligamentum flavum. C6-7: Broad-based disc osteophyte complex formation resulting in ventral deformity and CSF effacement of the thecal. Hypertrophy of ligamentum flavum. C7-T1: No disc herniation. No neuroforamina stenosis. No prevertebral compartment hematoma, mass or fluid collection. Flow-void signal within the mean vessels is normal. Codominant vertebral arteries IMPRESSION: No demyelinating plaques, cervical spinal cord. Multilevel cervical spondylosis C3-4 to C6-7 pronounced at C5-6, C6-7 and to a lesser extent C4-5. No cord compression, cord edema and or myelopathy. Electronically signed by: Rocael Isidro MD 09/09/2025 06:57 AM EST Dictated By: Rocael Dean MD Signed By: <Electronically signed by Rocael Comer MD in OV> 09/09/25 0657 DD/ 35 TD/TT: 09/08/251916 Wood Box Maker: Procedure Note Donotuseinterpreter, Image - 09/09/2025 [place] [address] Magnetic Resonance Report Signed Patient: Evelyn Hester#: [id number] : 1980Acct:[id number] Age/Sex: 45 / FADM Date: 09/08/25 Loc: HO.MRI Attending Dr: Vikki Nina MD Ordering Physician: Vikki Nina MD Date of Service: 09/08/25 Procedure(s): MR cervical spine wo con Accession Number(s): [id number] cc: Cristina De La Cruz MD; Vikki Nina MD Reason for Exam: G37.9 - Demyelinating disease of central nervous system,unspecified EXAMINATION: MR BRAIN WITHOUT CONTRAST CLINICAL INFORMATION: G 37.9. Demyelinating disease of central nervous system. COMPARISON: None available. TECHNIQUE: MRI of the brain was obtained using routine sequences without contrast. FINDINGS: No restricted diffusion. No acute intracranial hemorrhage, mass effect, midline shift, hydrocephalus or herniation. Gotti-white matter differentiation is normal. No signal abnormality within the pericallosal interface. Sellar/suprasellar region is normal. Craniocervical junction is intact with borderline position of the cerebellar tonsils. Posterior cranial fossa contents demonstrated no signal abnormality or mass effect. Flow-void signal within the main cerebral vessels is normal. MR/MR cervical spine wo con IMPRESSION: No acute brain abnormality. No demyelinating plaques. Borderline position cerebellar tonsils. EXAMINATION: MR CERVICAL SPINE WITHOUT CONTRAST CLINICAL INFORMATION: G 37.9. Demyelinating disease of central nervous system. COMPARISON: None available. TECHNIQUE: MRI of the cervical spine was obtained using routine sequences without contrast. FINDINGS: Craniocervical junction is intact. Borderline position of the cerebellar tonsils. No bone marrow STIR signal abnormality. Marginal osteophyte formation and disc desiccation at C5-6 and to a lesser extent C6-7. Reverse curvature apex at C5-6. There is normal alignment. Cervical spinal cord signal is normal. C2-3: No disc herniation. No neuroforamina stenosis. C3-4: Broad-based disc osteophyte complex formation. No cord compression. No neuroforamina stenosis. C4-5: Broad-based disc osteophyte complex formation abutting the thecal sac. No cord compression. Left neuroforamina narrowing. C5-6: Broad-based disc osteophyte complex formation resulting in CSF effacement of the thecal sac and flattening of the spinal cord. No or signal abnormality. Bilateral, right greater than left neuroforamina narrowing. Hypertrophy of ligamentum flavum. C6-7: Broad-based disc osteophyte complex formation resulting in ventral deformity and CSF effacement of the thecal. Hypertrophy of ligamentum flavum. C7-T1: No disc herniation. No neuroforamina stenosis. No prevertebral compartment hematoma, mass or fluid collection. Flow-void signal within the mean vessels is normal. Codominant vertebral arteries IMPRESSION: No demyelinating plaques, cervical spinal cord. Multilevel cervical spondylosis C3-4 to C6-7 pronounced at C5-6, C6-7 and to a lesser extent C4-5. No cord compression, cord edema and or myelopathy. Electronically signed by: Rcoael Isidro MD 09/09/2025 06:57 AM EST Dictated By: Rocael Dean MD Signed By: <Electronically signed by Rocael Comer MDin OV> 09/09/25 0657 DD/ 1836 TD/TT: 09/08/25 1917 Wood Box Maker: [facility] External Provider IMG MRI PROCEDURES Final Result documented in this encounter Visit Diagnoses Not on filedocumented in this encounter Care Teams Drier Transfer Car Operator Relationship Specialty Start Date End Date Cristina De La Cruz MD [address] [place] [address] PCP - General Family Medicine 05/21/19 documented as of this encounter
--- OUTSIDE RECORDS SUMMARY | 2025-09-09 13:46 | XMS_ITS | Encounter Summary ---
Author Organization [employer] Address [address] [place] [address] [address] [place] [address] Care Team Providers Care Heavy Mobile Equipment Operator Name Role Phone Cristina De La Cruz MD Primary Care Provider [phone] Encounter Details Date Type Department Care Team (Late st Contact Info) Description 08/12/2025 Results Follow-Up [facility] [address] [place] [address] Diane Diaz MD [address] [place] [address] TSH W/Reflex to FT4, Basic Metabolic Panel, [...] Description 09/15/2025 10:30 AM EST Office Visit [facility] [address] [place] [address] Cristina De La Cruz MD [address] [place] [address] documented as of this encounter Visit Diagnoses Not on filedocumented in this encounter Care Teams Heavy Mobile Equipment Operator Relationship Specialty Start Date End Date Cristina De La Cruz MD [address] [place] [address] PCP - General Family Medicine 05/21/19 documented as of this encounter
--- OUTSIDE RECORDS SUMMARY | 2025-09-09 13:47 | XMS_ITS ---
[...] 11/21 - 11/26/23 will be left at [facility] red team. Counseled to quit smoking, not [...] Encounters Date Type Department Care Team Description 09/08/2025 Orders Only [facility] External Provider, [facility] 08/12/2025 Results Follow-Up [facility] [address] [place] [address] Diane Diaz MD TSH W/Reflex to FT4, Basic Metabolic Panel, Lipid Panel, Standard 08/11/2025 10:00 AM EDT Office Visit [facility] [address] [place] [address] Diane Diaz MD Neck swelling (Primary Dx); Essential hypertension 08/11/2025 Travel 08/11/2025 Telephone [facility]IC[facility] [address] [place], [place] [phone] Cristina De La Cruz MD Nurse Triage [...] Description 09/15/2025 10:30 AM EST Office Visit [facility] [address] [place] [address] Cristina De La Cruz MD [address] [place] [address] Health Maintenance Due Date Last Done Comments [...] Name Priority Date/Time Associated Diagnosis Comments MR BRAIN WO CONTRAST Routine 09/08/2025 6:36 PM EST MR CERVICAL SPINE WO CONTRAST Routine 09/08/2025 6:36 PM EST LIPID PANEL, STANDARD Routine 08/11/2025 11:27 AM [...] Recently Relevant to Health Maintenance Results * MR Cervical Spine w/o Contrast (09/08/2025 6:36 PM EST) Anatomical Region Laterality Modality Spine, C-spine Magnetic Resonan ce 09/08/2025 6:36 PM EST Narrative 09/09/2025 7:00 AM EST [place] [address] Magnetic Resonance Report Signed Patient: Char Hester MR#: [id number] : 1980 Acct:[id number] Age/Sex: 45 / F ADM Date: 09/08/25 Loc: HO.MRI Attending Dr: Vikki Nina MD Ordering Physician: Vikki Nina MD Date of Service: 09/08/25 Procedure(s): MR cervical spine wo con Accession Number(s): [id number] cc: Cristina De La Cruz MD; Vikki [...] OV> 09/09/25 0657 DD/ 35 TD/TT: 09/08/251916 Limo Driver: Procedure Note Donotuseinterpreter, Image - 09/09/2025 [place] [address] Magnetic Resonance Report Signed Patient: Char HesterMR#: [id number] : 1980Acct:[id number] Age/Sex: 45 / FADM Date: 09/08/25 Loc: HO.MRI Attending Dr: Vikki Nina MD Ordering Physician: Vikki Nina MD Date of Service: 09/08/25 Procedure(s): MR cervical spine wo con Accession Number(s): [id number] cc: Cristina De La Cruz MD; Vikki [...] MDin OV> 09/09/25 0657 DD/ 35 TD/TT: 09/08/251916 Limo Driver: [facility] External Provider IM MRI PROCEDURES Final Result * MR Brain w/o Contrast (09/08/2025 6:36 PM EST) Anatomical Region Laterality Modality Brain Magnetic Resonan ce 09/08/2025 6:36 PM EST Narrative 09/09/2025 7:00 AM EST [address] [address] Magnetic Resonance Report Signed Patient: Char Hester MR#: [id number] : 1980 Acct:[id number] Age/Sex: 45 / F ADM Date: 09/08/25 Loc: HO.MRI Attending Dr: Vikki Nina MD Ordering Physician: Vikki Nina MD Date of Service: 09/08/25 Procedure(s): MR head/brain wo con Accession Number(s): [id number] cc: Cristina De La Cruz MD; Vikki [...] 09/09/25 0657 DD/ 1836 TD/TT: 09/08/25 1857 Limo Driver: Procedure Note Donotuseinterpreter, Image - 09/09/[address] [address] Magnetic Resonance Report Signed Patient: Char Hester#: [id number] : 1980Acct:[id number] Age/Sex: 45 / FADM Date: 09/08/25 Loc: HO.MRI Attending Dr: Vikki Nina MD Ordering Physician: Vikki Nina MD Date of Service: 09/08/25 Procedure(s): MR head/brain wo con Accession Number(s): [id number] cc: Cristina De La Cruz MD; Vikki [...] MDin OV> 09/09/25 0657 DD/ 35 TD/TT: 09/08/251856 Limo Driver: [facility] External Provider IMG MRI PROCEDURES Final Result * TSH W/Reflex to FT4 (08/11/2025 11:27 AM EDT) TSH reflex Free T4 1.13 0.32 - 4.0 uIU/mL [facility] Blood Venous blood specimen / Unknown 08/11/2025 11:27 AM EDT 08/11/2025 2:21 PM EDT Diane Diaz MD LAB BLOOD ORDERABLES Final Resul t [facility] [address] [place] [phone] * Lipid Panel, Standard (08/11/2025 11:27 AM EDT) Triglycerides 87 <150 mg/dL [facility] Comment:Desirable Triglyceri de: less than 150 mg/dLBorderline High Triglyceride 150-199 mg/dLHigh Triglyceride: 200-499 mg/dLVery High Triglyceride: greater than or equal to 5OO mg/dL Cholesterol 155 <200 mg/dL [facility] Comment:Desirable Cholestero l: less than 200 mg/dLBorderline High Cholesterol: 200-239 mg/dLHigh Cholesterol: greater than 239 mg/dL LDL Cholesterol Calculated 97 <100 mg/dL [facility] Comment:Desirable LDL: less than 100 mg/dLNear Optimal/Above Optimal LDL: 110- 129 mg/dLBorderline High LDL: 130-159 mg/dLHigh LDL: 160-189 mg/dLVery High LDL: greater than or equal to 190 mg/dL HDL Cholesterol 41 >40 mg/dL [facility] Comment:Desirable HDL: great er than 40 mg/dL Note: This HDL assay may give artificially low results in patients with liver disease. Blood Venous blood specimen / Unknown 08/11/2025 11:27 AM EDT 08/11/2025 2:21 PM EDT us Diane Diaz MD LAB BLOOD ORDERABLES Final Resul t [facility] [address] [place] [phone] * Basic Metabolic Panel (08/11/2025 11:27 AM EDT) Sodium 138 135 - 145 mmol/L [facility] Potassium 4.1 3.3 - 5.1 mmol/L [facility] Chloride 101 96 - 108 mmol/L [facility] Carbon Dioxide 29 22 - 29 mmol/L [facility] Anion Gap 12 12 - 20 [facility] Urea Nitrogen (BUN) 11 9 - 16 mg/dL [facility] Creatinine, Serum 0.63 0.5 - 1.4 mg/dL [facility] Estimated Glomerular Filt Rate >60 [facility] Comment:Chronic Kidney Disea se: Estimated GFR < 60 mL/min/1.51o3Mmdhpd Kidney Disease: Estimated GFR < 15 mL/min/1.73m2 Glucose 97 60 - 115 mg/dL [facility] Calcium 9.4 8.4 - 10.2 mg/dL [facility] Blood Venous blood specimen / Unknown 08/11/2025 11:27 AM EDT 08/11/2025 2:21 PM EDT us Diane Diaz MD LAB BLOOD ORDERABLES Final Resul t Performing Organization Address [facility]/ZIP Co de Phone Number [facility] [address] [place] [phone] * HIV-1/2 Antigen and Antibodies, Fourth Generation, with Reflexes (11/07/2024 2:42 PM EST) HIV AB/AG Nonreactive Nonreactive [facility] Comment:HIV-1 p24 Ag and/or HIV-1/HIV-2 Ab not detected.A test result that is nonreactive does not exclude thepossibility of exposure to or infection with HIV-1 and/orHIV-2. Nonreactive results in this assay for individualswith prior exposure to HIV-1 and/or HIV-2 may be due toantigen and antibody levels that are below the limit ofdetection of this assay.The [employer] HIV Ag/Ab Combo assay result andsupplemental assay [...] ORDERABLES Final Re sult Performing Organization Address City/[facility]/ZIP Co de Phone Number [facility] [address] [place] [phone] * BI Mammogram Screening Tomosynthesis Bilateral (04/29/2024 10:50 AM EDT) Anatomical Region Laterality Modality Breast Bilateral Mammography 04/29/2024 10:5 0 AM EDT Narrative 05/26/2024 10:17 PM EDT [facility] [address] [place] [address] Mammography Report Signed Patient: Char Hester MR#: [id number] : 1980 Acct:[id number] Age/Sex: 43 / F ADM Date: 04/29/24 Loc: MAMMO Attending Dr: Cristina De La Cruz MD Ordering Physician: Cristina De La Cruz MD Results: 1Ne gative Date of Service: 04/29/24 Follow Up: 1 Year From Orig inal Mammogram Procedure(s): MM tomosynthesis screening BI Accession Number(s): [id number] cc: Cristina De La Cruz MD EXAMINATION: [...] in OV> 05/26/24 2213 DD/ 1050 TD/TT: Limo Driver: Procedure Note Donotuseinterpreter, Image - 05/26/2024 [facility] [address] [place] [address] Mammography Report Signed Patient: Char HesterMR#: [id number] : 1980Acct:[id number] Age/Sex: 43 / FADM Date: 04/29/24 Loc: NIA Attending Dr: Cristina De La Cruz MD Ordering Physician: Cristina De La Cruz MDResults: 1Ne gative Date of Service: 04/29/24Follow Up: 1 Year From Orig ina Mammogram Procedure(s): MM tomosynthesis screening BI Accession Number(s): [id number] cc: Cristina De La Cruz MD EXAMINATION: [...] in OV> 05/26/24 2213 DD/ 1050 TD/TT: Limo Driver: Cristina De La Cruz MD [facility] BI PROCEDURES Final Resul t * HPV mRNA E6/E7 (07/22/2019 3:52 PM EDT) HPV mRNA E6/E7 Not Detected NOT DETECTED [facility] Comment: This test was performed using the APTIMA(R) HPV Assay ([employer] This assay detects E6/E7 viral messenger RNA (mRNA) from 14 high-risk HPV types (16,18,31,33,35,39,45,51, 52,56,58,59,66,68). For additional information please refer to: http://education.[employer]/faq/RYY498k0 (This link is being provided for informational/ educational purposes only.) The analytical performance characteristics of this assay have been determined by [employer] [place], [place]. The modifications have not been cleared or approved by the FDA. This assay has been validated pursuant to the CLIA regulations and is used for clinical purposes. Test Performed by [facility], [employer] [facility], [address] [place] [address] Michel Fleming M.D., Ph.D., Director of Laboratories , CLIA [id number] Please note: Effective 07/03/2016, HPV testing will be performed using [employer] APTIMA test which targets mRNA. Detecting mRNA instead of DNA, as in older methods, offers significant improvements in specificity. 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
--- OUTSIDE RECORDS SUMMARY | 2025-09-09 13:47 | XMS_ITS | Clinical Summary ---
Author Organization [facility] ity Address [address] [place] [phone] Care Team Providers Care Nurse Examiner Name Role Phone Unavailable Primary Care Provider [...] series) 2008 Depression Screening 10/22/2024 COVID-19 Vaccine (1 - 2024-2 6 season) 2025 Influenza Vaccine (#1) 2025 RSV [...]
== END 2025-09-08 18:31 | disposition home or self-care (01) ==
LOC: HO.MRI 18:30
PROVIDERS: PCP Pediatrics; Visit Provider Psychiatry & Neurology Neurology
DX: G37.9 Demyelinating disease of central nervous system, unspecified (principal)
CPT/HCPCS: 70551; 72141

== ENCOUNTER → 2025-09-08 18:30 | Outpatient (BNV) | payer MEDICAID, SELFPAY | PROVIDERS: PCP Pediatrics; Visit Provider Radiology Diagnostic Radiology | DX: G37.9 Demyelinating disease of central nervous system, unspecified (principal); M47.812 Spondylosis without myelopathy or radiculopathy, cervical region | CPT/HCPCS: 70551; 72141 ==

== ENCOUNTER 2025-09-15 11:23 | Outpatient (REF) | payer MEDICAID, SELFPAY ==
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
[2025-09-15 14:17] LABS: MANUAL DIFF FLAG NO
[2025-09-15 14:34] LABS: Hematocrit 46.1 % (37.0-47.0); Hemoglobin 15.0 g/dl (12.0-16.0); Imm Gran Abs Auto 0.01 X10*3/uL (0.00-0.03); Imm Gran Pct Auto 0.2 % (0.0-0.4); Lymphocytes Absolute Auto 2.4 X10*3/uL (1.2-4.9); Mean Corpuscular HGB Conc 32.5 g/dl (31.0-35.0); Mean Corpuscular Hemoglobin 30.4 pg (27.0-33.0); Mean Corpuscular Volume 93.5 fL (80.0-98.0); NRBC Abs Auto 0.000 X10*3/uL (0.0-0.012); NRBC Pct Auto 0.0 /100WBC (0.0-0.2); Platelet Count 129 X10*3/uL (160-400); Red Blood Count 4.93 X10*6/uL (4.20-5.50); White Blood Count 5.7 X10*3/uL (4.8-10.8)
[2025-09-15 14:56] LABS: Alanine Aminotransferase 142 U/L (0-31); Albumin Level 4.5 g/dL (3.5-5.0); Alkaline Phosphatase 85 U/L (39-117); Aspartate Amino Transferase 96 U/L (5-31); Total Protein 7.9 g/dL (6.5-8.0)
[2025-09-15 15:02] LABS: Microalbum/Creatinine Ratio Ur 4.4 ug/mg cr (<30)
--- OUTSIDE RECORDS SUMMARY | 2025-09-15 15:06 | XMS_ITS | Encounter Summary ---
Author Organization [employer] Address [address] [place] [address] [address] [place] [address] Care Team Providers Care Forest Ranger Technician Name Role Phone Cristina De La Cruz MD Primary Care Provider [phone] Encounter Details Date Type Department Care Team (Late st Contact Info) Description 08/12/2025 Results Follow-Up [facility] [address] [place] [address] Diane Diaz MD [address] [place] [address] TSH W/Reflex to FT4, Basic Metabolic Panel, [...] Care Team (Late st Contact Info) Description 11/19/2025 1:30 PM EST Procedure Visit [facility] [address] [place] [address] Cristina De La Cruz MD [address] [place] [address] documented as of this encounter Visit Diagnoses Not on filedocumented in this encounter Care Teams Forest Ranger Technician Relationship Specialty Start Date End Date Cristina De La Cruz MD [address] [place] [address] PCP - General Family Medicine 05/21/19 documented as of this encounter
--- OUTSIDE RECORDS SUMMARY | 2025-09-15 15:06 | XMS_ITS | Encounter Summary ---
Author Organization [employer] Address [address] [place] [id number] Care Team Providers Care Lodging Facilities Attendant Name Role Phone Cristina De La Cruz MD Primary Care Provider [phone] Reason for Visit * Reason Onset Date Comments Referral 08/22/2023 Encounter Details Date Type Department Care Team ([facility] Contact Info) Description 08/22/2023 Telephone [facility] MEDICINE [address] [place], [place] [phone] Cristina De La Cruz MD [address] [place], [place] [phone] Referral Social History Tobacco Use Types Packs/Day [...] Upcoming Encounters Date Type Department Care Team ([facility] Contact Info) Description 11/19/2025 1:30 PM EST Procedure Visit [facility]S [address] [place], [place] [phone] Cristina De La Cruz MD [address] [place] [address] documented as of this encounter Visit Diagnoses Not on filedocumented in this encounter Care Teams Lodging Facilities Attendant Relationship Specialty Start Date End Date Cristina De La Cruz MD [address] [place] [address] PCP - General Family Medicine 05/21/19 documented as of this encounter
--- OUTSIDE RECORDS SUMMARY | 2025-09-15 15:06 | XMS_ITS | Encounter Summary ---
Author Organization [employer] Address [address] [place] [address] [address] [place] [address] Care Team Providers Care Concrete Pump Operator Helper Name Role Phone Cristina De La Cruz MD Primary Care Provider [phone] Encounter Details Date Type Department Care Team ([facility] Contact Info) Description 04/16/2024 Orders Only [facility] [address] [place], [place] [phone] Faina Benavides FNP [address] [place] [address] Social History Tobacco Use Types Packs/Day Years [...] Encounters Date Type Department Care Team (Late Contact Info) Description 11/19/2025 1:30 PM EST Procedure Visit [facility] [address] [place], [place] [phone] Cristina De La Cruz MD [address] [place] [address] documented as of this encounter Procedures Procedure Name Priority Date/Time Associated Diagnosis Comments BI MAMMOGRAM SCREENING TOMOSYNTHESIS BILATERAL Routine 04/29/2024 10:50 AM EDT documented in this encounter Results * BI Mammogram Screening Tomosynthesis Bilateral (04/29/2024 10:50 AM EDT) Anatomical Region Laterality Modality Breast Bilateral Mammography 04/29/2024 10:5 0 AM EDT Narrative 05/26/2024 10:17 PM EDT [address] [place], [place] [address] Mammography Report Signed Patient: Char Hester MR#: [id number] : 1980 Acct:[id number] Age/Sex: 43 / F ADM Date: 04/29/24 Loc: HO.MAMMO Attending Dr: Cristina De La Cruz MD Ordering Physician: Cristina De La Cruz MD Results: 1Ne gative Date of Service: 04/29/24 Follow Up: 1 Year From Orig inal Mammogram Procedure(s): MM tomosynthesis screening BI Accession Number(s): [id number] cc: Cristina De La Cruz MD EXAMINATION: [...] in OV> 05/26/24 2213 DD/ 1050 TD/TT: Sample Book Maker: Procedure Note Donotuseinterpreter, Image - 05/26/2024 E[place] [facility] [address] [place] [address] Mammography Report Signed Patient: Char HesterMR#: [id number] : 1980Acct:[id number] Age/Sex: 43 / FADM Date: 04/29/24 Loc: HO.MAMMO Attending Dr: Cristina De La Cruz MD Ordering Physician: Cristina De La Cruz MDResults: 1Ne gative Date of Service: 04/29/24Follow Up: 1 Year From Orig inal Mammogram Procedure(s): MM tomosynthesis screening BI Accession Number(s): [id number] cc: Cristina De La Cruz MD EXAMINATION: [...] in OV> 05/26/24 2213 DD/ 1050 TD/TT: Sample Book Maker: us Cristina De La Cruz MD IMG BI PROCEDURES Final Resul t documented in this encounter Visit Diagnoses Not on filedocumented in this encounter Care Teams Concrete Pump Operator Helper Relationship Specialty Start Date End Date Cristina De La Cruz MD [address] [place] [address] PCP - General Family Medicine 05/21/19 documented as of this encounter
--- OUTSIDE RECORDS SUMMARY | 2025-09-15 15:06 | XMS_ITS | Encounter Summary ---
Author Organization [employer] Address [address] [facility] 7 [place] [address] Care Team Providers Care Lance Crewmember Name Role Phone Cristina De La Cruz MD Primary Care Provider [phone] Reason for Visit * Reason Onset Date Comments Chart Prep 09/14/2025 Encounter Details Date Type Department Care Team ([facility] st Contact Info) Description 09/14/2025 Telephone [facility] MED & PEDS [address] [place], [place] [phone] Cristina De La Cruz MD [address] [place] [address] Chart Prep Social History Tobacco Use Types Packs/Day Years [...] encounter Miscellaneous Notes * Telephone Encounter - Aarti Moore [place] - 09/14/2025 10:35 AM EST Chart Prep Labs: done Images: done Referrals: complete Vaccines due: Covid, Flu, PCV20, Hep B, Hep A, and HPV Screenings: pap smear Overdue care gaps: SBIRT, SDOH, PHQ-9, Oral health screening, and Tobacco documented in this encounter Plan of Treatment Upcoming Encounters Date Type Department Care Team ([facility] st Contact Info) Description 11/19/2025 1:30 PM EST Procedure Visit [facility] MED & PEDS [address] [place] [address] Cristina De La Cruz MD [address] [place] [address] documented as of this encounter Visit Diagnoses Not on filedocumented in this encounter Care Teams Lance Crewmember Relationship Specialty Start Date End Date Cristina De La Cruz MD [address] [place] [address] PCP - General Family Medicine 05/21/19 documented as of this encounter
--- OUTSIDE RECORDS SUMMARY | 2025-09-15 15:06 | XMS_ITS | Encounter Summary ---
Author Organization [employer] Address [address] [facility] [address] [place] [address] Care Team Providers Care Hospice Clinical Supervisor Name Role Phone Cristina De La Cruz MD Primary Care Provider [phone] Encounter Details Date Type Department Care Team (Latest Contact Info) Description 09/15/2025 Travel Social History Tobacco Use Types Packs/Day Years [...] AM EDT documented as of this encounter Functional Status * Over the [...] Nearly every day 09/15/2025 10:23 AM Aarti Weiner [place] * Poor appetite or overeating Answer [...] Author Not at all 09/15/2025 10:23 AM EST Aarti Eldridge MA * Thoughts that you would be better off or hurting yourself in some way Answer Date of Assessment Author More than half the days 09/15/2025 10:23 AM EST Aarti Moore MA * Patient Health Questionnaire-9 Score Answer Date of Assessment Author 12 09/15/2025 10:23 AM EST Aarti Eldridge MA * How difficult have these problems made it for you to do your work, take care of things at home, or get along with other people? Answer Date of Assessment Author Extremely difficult 09/15/2025 10:23 AM EST Aarti Carson [place] documented as of this encounter Plan of Treatment Upcoming Encounters Date Type Department Care Team ([facility] Contact Info) Description 11/19/2025 1:30 PM EST Procedure Visit [facility] MED [facility]ED[facility] [address] [place] [address] Cristina De La Cruz MD [address] [place] [address] documented as of this encounter Visit Diagnoses Not on filedocumented in this encounter Additional Health Concerns Assessment Noted Time PHQ-9 Depression Total Score: 12 025 10:23 AM EST documented as of this encounter Care Teams Hospice Clinical Supervisor Relationship Specialty Start Date End Date Cristina De La Cruz MD [address] [place] [address] PCP - General Family Medicine 05/21/19 documented as of this encounter
--- OUTSIDE RECORDS SUMMARY | 2025-09-15 15:06 | XMS_ITS | Encounter Summary ---
Author Organization [employer] Address [address] [facility] 7 [place] [address] Care Team Providers Care Waiter/Waitress Buffet Name Role Phone Cristina De La Cruz MD Primary Care Provider [phone] Reason for Visit * Reason Onset Date Comments Letter for School/Work 09/24/2023 Encounter Details Date Type Department Care Team ([facility] st Contact Info) Description 09/24/2023 Telephone [facility] [address] [place] [address] Cristina De La Cruz MD [address] [place] [address] Letter for School/Work Social History Tobacco Use [...] with plan. * Telephone Encounter - Landen Alfredo - 09/24/2023 1:21 PM EST Tc from patient requesting a note for work and to cover for 09/21 to 10/04 documented in this encounter Plan of Treatment Upcoming Encounters Date Type Department Care Team ([facility] st Contact Info) Description 11/19/2025 1:30 PM EST Procedure Visit [facility] MED & PEDS [address] [place] [address] Cristina De La Cruz MD [address] [place] [address] documented as of this encounter Visit Diagnoses Not on filedocumented in this encounter Care Teams Waiter/Waitress Buffet Relationship Specialty Start Date End Date Cristina De La Cruz MD [address] [place] [address] PCP - General Family Medicine 05/21/19 documented as of this encounter
--- OUTSIDE RECORDS SUMMARY | 2025-09-15 15:06 | XMS_ITS | Encounter Summary ---
Author Organization [employer] Address [address] [place] [address] [place] [address] Care Team Providers Care Manufacturing Associate Name Role Phone Cristina De La Cruz MD Primary Care Provider [phone] Reason for Visit * Reason Onset Date Comments Nurse Triage 04/14/2024 Encounter Details Date Type Department Care Team ([facility] st Contact Info) Description 04/14/[address] [facility] MED & PEDS [address] [place], [place] [phone] Cristina De La Cruz MD [address] [place] [address] Nurse Triage Social History Tobacco Use Types [...] feels as though sh cannot go to [facility] and would like a televist. Patient [...] Team appts. Available at time of call. [facility] Walk In Center hours and availability provided [...] Upcoming Encounters Date Type Department Care Team ([facility] st Contact Info) Description 11/19/2025 1:30 PM EST Procedure Visit [facility] MED & PEDS [address] [place] [address] Cristina De La Cruz MD [address] [place] [address] documented as of this encounter Visit Diagnoses Diagnosis Moderate persistent asthma with exacerbation Unspecified asthma, with exacerbation documented in this encounter Care Teams Manufacturing Associate Relationship Specialty Start Date End Date Cristina De La Cruz MD [address] [place] [address] PCP - General Family Medicine 05/21/19 documented as of this encounter
--- OUTSIDE RECORDS SUMMARY | 2025-09-15 15:07 | XMS_ITS | Clinical Summary ---
Author Organization [employer] ([employer] Address [address] [place] [address] Care Team Providers Care Iron Worker Foreman Name Role Phone Cristina De La Cruz MD Primary Care Provider Allergies Active Allergy Reactions Criticality Noted Date Comments Codeine 11/07/2024 Shellfish Allergy 11/07/2024 Medications Spacer/Aero-Holdi ng Chambers (AEROCHAMBER MAX W/FLOW-VU) miscIndications:B ronchitis Use qid prn with inhaler 1 each 3 Active sofosbuvir-velpat asvir (Epclusa) 400-100 MG tablet Take 1 tablet by mouth in the morning. 3 Active naproxen (Naprosyn) 500 MG tablet Take 500 mg by mouth 2 times daily. 3 Active albuterol (Ventolin HFA) 108 (90 Base) MCG/ACT inhalerIndication s:Moderate persistent asthma with exacerbation INHALE 2 PUFFS BY INHALATION ROUTE 4 TIMES EVERY DAY NEEDED FOR SHORTNESS OF BREATH 18 g 1 4 Active Diclofenac Sodium 1 % gel APPLY SPARINGLY TO AFFECTED AREA ONCE DAILY 4 Active lidocaine (Lidoderm) 5 % patch APPLY 1 PATCH AND LEAVE IN PLACE FOR 12 HOURS, THEN REMOVE AND LEAVE OFF FOR 12 HOURS 4 Active SUMAtriptan (Imitrex) 25 MG tabletIndications :Facial numbness Take 1 tablet (25 mg) by mouth 1 (one) time if needed for migraine for up to 9 doses. May repeat dose once in 2 hours if no relief. Do not exceed 2 doses in 24 hours. 9 tablet 5 Active olmesartan (Benicar) 5 MG tablet Take 1 tablet (5 mg) by mouth Once per day. 30 tablet 11 5 08/11/20 26 Active omeprazole (PriLOSEC) [address] capsule Take 1 capsule (20 mg) by mouth before breakfast. Do not crush or chew. 30 capsule 1 5 09/15/20 26 Active Active Problems Problem Noted Date Diagnosed Date [...] 11/21 - 11/26/23 will be left at [facility] red team. Counseled to quit smoking, not [...] Encounters Date Type Department Care Team Description 09/15/2025 10:30 AM EST Office Visit [facility] [address] [place] [address] Cristina De La Cruz MD Situational anxiety (Primary Dx); Chronic hepatitis C without hepatic coma (HCC); Opioid use disorder in remission; Essential hypertension; Vitamin D deficiency; Oropharyngeal dysphagia; Dietary counseling; Exercise counseling 09/15/2025 Travel 09/14/2025 Telephone [facility] [address] [place] [address] Cristina De La Cruz MD Chart Prep 09/08/2025 Orders Only [facility] External Provider, [facility] 08/12/2025 Results Follow-Up [facility] [address] [place] [address] Diane Diaz MD TSH W/Reflex to FT4, Basic Metabolic Panel, Lipid Panel, Standard 08/11/2025 10:00 AM EDT Office Visit [facility] [address] [place] [address] Diane Diaz MD Neck swelling (Primary Dx); Essential hypertension 08/11/2025 Travel 08/11/2025 Telephone [facility] MEDICINE [address] [place] [address] Cristina De La Cruz MD Nurse Triage [...] uit: Not Asked; Counseling Given: Not Answered Depression Answer Date Recorded Patient Health Questionnaire-9 [...] 20 09/15/2025 10:21 AM EST Oxygen Saturation 99% 05/13/2025 5:52 PM EDT Inhaled Oxygen Concentration - - Weight 97.5 kg (215 lb) 09/15/2025 10:21 AM EST Height 162.6 cm (5' 4 ) 08/11/2025 10:16 AM EDT Body Mass Index 36.9 08/11/2025 10:16 AM EDT Plan of Treatment Upcoming Encounters Date Type Department Care Team (Late st Contact Info) Description 11/19/2025 1:30 PM EST Procedure Visit [facility] [address], [place] [phone] Cristina De La Cruz MD [address] [place] [address] Health Maintenance Due Date Last Done Comments Family Planning (PISQ) 1996 HPV Vaccines (1 [...] 07/20/2021, 03/06/2021 Influenza Vaccine (#1) 2025 07/22/2019 Depression Monitoring 03/15/2026 09/15/2025 , 09/15/2025 Mammogram 04/29/2026 04/29/2024 Alcohol/Substance Use Screening 09/15/2026 09/15/2025 Disability Screening 09/15/2026 09/15/2025 SDOH Screening 09/15/2026 09/15/2025 Tobacco Screening 09/15/2026 09/15/2025 DTaP/Tdap/Td Vaccines (2 - T d or [...] Vitamin D deficiency HEPATIC FUNCTION PANEL Routine 11:26 AM EST Situational anxiety Chronic hepatitis C without hepatic coma (HCC) Opioid use disorder in remission Essential hypertension Vitamin D deficiency CBC WITH AUTO DIFFERENTIAL Routine 09/15/2025 11:26 AM EST Situational anxiety Chronic hepatitis C without hepatic coma (HCC) Opioid use disorder in remission Essential hypertension Vitamin D deficiency MR BRAIN WO CONTRAST Routine 09/08/2025 6:36 [...] Recently Relevant to Health Maintenance Results * Albumin, Random Urine W/Creatinine (09/15/2025 11:30 AM EST) Creatinine, Urine 181.03 mg/dL [facility] Microalbumin Urine 8.0 mg/L [facility] Microalbum Creatinine Ratio Ur 4.4 <30 ug/mg cr [facility] Comment:Albumin/Creatinine R atio Reference Ranges: Normal: < 30 ug/mg creatinine Microalbuminuria: 30 - 300 ug/mg creatinineClinical Albuminuria: > 300 ug/mg creatinine Urine (Urine, Random) 09/15/2025 11:30 AM EST 09/15/2025 2:05 PM EST us Cristina De La Cruz MD LAB URINE ORDERABLES Final Re sult [facility] [address] [place] [phone] * (ABNORMAL) CBC auto differential (09/15/2025 11:26 AM EST) White Blood Count 5.7 4.8 - 10.8 X10*3/uL [facility] Red Blood Count 4.93 4.20 - 5.50 X10*6/uL [facility] Hemoglobin 15.0 12.0 - 16.0 g/dl [facility] Hematocrit 46.1 37.0 - 47.0 % [facility] Mean Corpuscular Volume 93.5 80.0 - 98.0 fL [facility] Mean Corpuscular Hemoglobin 30.4 27.0 - 33.0 pg [facility] Mean Corpuscular HGB Conc 32.5 31.0 - 35.0 g/dl [facility] Red Cell Distribution Width 11.8 11.0 - 16.0 % [facility] Platelet Count 129(L) 160 - 400 X10*3/uL [facility] Mean Platelet Volume 10.9 9.4 - 12.3 fL [facility] Neutrophils Percent Auto 47.1 45 - 73 % [facility] Imm Gran Pct Auto 0.2 0.0 - 0.4 % [facility] Lymphocytes Percent Auto 43.0(H) 20 - 40 % [facility] Monocytes Percent Auto 7.4 2 - 11 % [facility] Eosinophils Percent Auto 1.9 0 - 4 % [facility] Basophils Percent Auto 0.4 0 - 2 % [facility] NRBC Pct Auto 0.0 0.0 - 0.2 /100WBC [facility] Neutrophils Absolute Auto 2.7 2.0 - 8.3 x10*3/uL [facility] Imm Gran Abs Auto 0.01 0.00 - 0.03 X10*3/uL [facility] Lymphocytes Absolute Auto 2.4 1.2 - 4.9 X10*3/uL [facility] Monocytes Absolute Auto 0.4 0.1 - 1.2 X10*3/uL [facility] Eosinophils Absolute Auto 0.1 0.0 - 0.4 X10*3/uL [facility] Basophils Absolute Auto 0.0 0.0 - 0.2 X10*3/uL [facility] NRBC Abs Auto 0.000 0.0 - 0.012 X10*3/uL [facility] Blood Venous blood specimen / Unknown 09/15/2025 11:26 AM EST 09/15/2025 2:14 PM EST us Cristina De La Cruz MD LAB BLOOD ORDERABLES Final Re sult Performing Organization Address City/State/[facility] Co de Phone Number [facility] [address] [place] [phone] * MR Cervical Spine w/o Contrast (09/08/2025 6:36 PM EST) Anatomical Region Laterality Modality Spine, C-spine Magnetic Resonan ce 09/08/2025 6:36 PM EST Narrative 09/09/2025 7:00 AM EST [address] [address] Magnetic Resonance Report Signed Patient: Char Hester MR#: [id number] : 1980 Acct:[id number] Age/Sex: 45 / F ADM Date: 09/08/25 Loc: HO.MRI Attending Dr: Vikki Nina MD Ordering Physician: Vikki Nina MD Date of Service: 09/08/25 Procedure(s): MR cervical spine wo con Accession Number(s): [id number] cc: Cristina De La Cruz MD; Vikki [...] OV> 09/09/25 0657 DD/ 35 TD/TT: 09/08/251916 Glass Melt Operator: Procedure Note Donotuseinterpreter, Image - 09/09/2025 [place] [address] Magnetic Resonance Report Signed Patient: Char Hester#: [id number] : 1980Acct:[id number] Age/Sex: 45 / FADM Date: 09/08/25 Loc: HO.MRI Attending Dr: Vikki Nina MD Ordering Physician: Vikki Nina MD Date of Service: 09/08/25 Procedure(s): MR cervical spine wo con Accession Number(s): [id number] cc: Cristina De La Cruz MD; Vikki [...] OV> 09/09/25 0657 DD/ 35 TD/TT: 09/08/251916 Glass Melt Operator: [facility] External Provider IMG MRI PROCEDURES Final Result * MR Brain w/o Contrast (09/08/2025 6:36 PM EST) Anatomical Region Laterality Modality Brain Magnetic Resonan ce 09/08/2025 6:36 PM EST Narrative 09/09/2025 7:00 AM EST [address] [address] Magnetic Resonance Report Signed Patient: Char Hester MR#: [id number] : 1980 Acct:[id number] Age/Sex: 45 / F ADM Date: 09/08/25 Loc: HO.MRI Attending Dr: Vikki Nina MD Ordering Physician: Vikki Nina MD Date of Service: 09/08/25 Procedure(s): MR head/brain wo con Accession Number(s): [id number] cc: Cristina De La Cruz MD; Vikki [...] and or myelopathy. Electronically signed by: Rocael Isirdo MD 09/09/2025 06:57 AM EST Dictated By: Rocael Dean MD Signed By: <Electronically signed by Rocael Comer MD in OV> 09/09/25 0657 DD/ 183 TD/TT: 09/08/25 1857 Glass Melt Operator: Procedure Note Donotuseinterpreter, Image - 09/09/[address] [address] Magnetic Resonance Report Signed Patient: Char Hester#: [id number] : 1980Acct:[id number] Age/Sex: 45 / FADM Date: 09/08/25 Loc: HO.MRI Attending Dr: Vikki Nina MD Ordering Physician: Vikki Nina MD Date of Service: 09/08/25 Procedure(s): MR head/brain wo con Accession Number(s): [id number] cc: Cristina De La Cruz MD; Vikki [...] 09/09/25 0657 DD/ 35 TD/TT: 09/08/25 185 Glass Melt Operator: [facility] External Provider IMG MRI PROCEDURES Final Result * TSH W/Reflex to FT4 (08/11/2025 11:27 AM EDT) TSH reflex Free T4 1.13 0.32 - 4.0 uIU/mL [facility] Blood Venous blood specimen / Unknown 08/11/2025 11:27 AM EDT 08/11/2025 2:21 PM EDT Diane Diaz MD LAB BLOOD ORDERABLES Final Resul t [facility] [address] [place] [phone] * Lipid Panel, Standard (08/11/2025 11:27 AM EDT) Triglycerides 87 <150 mg/dL [facility] Comment:Desirable Triglyceri de: less than 150 mg/dLBorderline High Triglyceride 150-199 mg/dLHigh Triglyceride: 200-499 mg/dLVery High Triglyceride: greater than or equal to 5OO mg/dL Cholesterol 155 <200 mg/dL [facility] Comment:Desirable Cholestero l: less than 200 mg/dLBorderline High Cholesterol: 200-239 mg/dLHigh Cholesterol: greater than 239 mg/dL LDL Cholesterol Calculated 97 <100 mg/dL [facility] Comment:Desirable LDL: less than 100 mg/dLNear Optimal/Above Optimal LDL: 110- 129 mg/dLBorderline High LDL: 130-159 mg/dLHigh LDL: 160-189 mg/dLVery High LDL: greater than or equal to 190 mg/dL HDL Cholesterol 41 >40 mg/dL [facility] Comment:Desirable HDL: great er than 40 mg/dL Note: This HDL assay may give artificially low results in patients with liver disease. Blood Venous blood specimen / Unknown 08/11/2025 11:27 AM EDT 08/11/2025 2:21 PM EDT us Diane Diaz MD LAB BLOOD ORDERABLES Final Resul t [facility] [address] [place] [phone] * Basic Metabolic Panel (08/11/2025 11:27 AM EDT) Sodium 138 135 - 145 mmol/L [facility] Potassium 4.1 3.3 - 5.1 mmol/L [facility] Chloride 101 96 - 108 mmol/L [facility] Carbon Dioxide 29 22 - 29 mmol/L [facility] Anion Gap 12 12 - 20 [facility] Urea Nitrogen (BUN) 11 9 - 16 mg/dL [facility] Creatinine, Serum 0.63 0.5 - 1.4 mg/dL [facility] Estimated Glomerular Filt Rate >60 [facility] Comment:Chronic Kidney Disea se: Estimated GFR < 60 mL/min/1.07a3Eeqeye Kidney Disease: Estimated GFR < 15 mL/min/1.73m2 Glucose 97 60 - 115 mg/dL [facility] Calcium 9.4 8.4 - 10.2 mg/dL [facility] Blood Venous blood specimen / Unknown 08/11/2025 11:27 AM EDT 08/11/2025 2:21 PM EDT us Diane Diaz MD LAB BLOOD ORDERABLES Final Resul t Performing Organization Address City/[facility]/ZIP Co de Phone Number [facility] [address] [place] [phone] * HIV-1/2 Antigen and Antibodies, Fourth Generation, with Reflexes (11/07/2024 2:42 PM EST) HIV AB/AG Nonreactive Nonreactive [facility] Comment:HIV-1 p24 Ag and/or HIV-1/HIV-2 Ab not detected.A test result that is nonreactive does not exclude thepossibility of exposure to or infection with HIV-1 and/orHIV-2. Nonreactive results in this assay for individualswith prior exposure to HIV-1 and/or HIV-2 may be due toantigen and antibody levels that are below the limit ofdetection of this assay.The [employer] HIV Ag/Ab Combo assay result andsupplemental assay [...] ORDERABLES Final Re sult Performing Organization Address City/[facility]/ZIP Co de Phone Number [facility] [address] [place] [phone] * BI Mammogram Screening Tomosynthesis Bilateral (04/29/2024 10:50 AM EDT) Anatomical Region Laterality Modality Breast Bilateral Mammography 04/29/2024 10:5 0 AM EDT Narrative 05/26/2024 10:17 PM EDT [address] [place] [address] Mammography Report Signed Patient: Char Hester MR#: [id number] : 1980 Acct:[id number] Age/Sex: 43 / F ADM Date: 04/29/24 Loc: HO.MAMMO Attending Dr: Cristina De La Cruz MD Ordering Physician: Cristina De La Cruz MD Results: 1Ne gative Date of Service: 04/29/24 Follow Up: 1 Year From Orig inal Mammogram Procedure(s): MM tomosynthesis screening BI Accession Number(s): [id number] cc: Cristina De La Cruz MD EXAMINATION: [...] in OV> 05/26/24 2213 DD/ 1050 TD/TT: Glass Melt Operator: Procedure Note Donotuseinterpreter, Image - 05/26/[address] [place] [address] Mammography Report Signed Patient: Char HesterMR#: [id number] : 1980Acct:[id number] Age/Sex: 43 / FADM Date: 04/29/24 Loc: HOShayleeMAMMO Attending Dr: Cristina De La Cruz MD Ordering Physician: Cristina De La Cruz MDResults: 1Ne gative Date of Service: 04/29/24Follow Up: 1 Year From Orig inal Mammogram Procedure(s): MM tomosynthesis screening BI Accession Number(s): [id number] cc: Cristina De La Cruz MD EXAMINATION: [...] in OV> 05/26/24 2213 DD/ 1050 TD/TT: Glass Melt Operator: us Cristina De La Cruz MD IMG BI PROCEDURES Final Resul t * HPV mRNA E6/E7 (07/22/2019 3:52 PM EDT) HPV mRNA E6/E7 Not Detected NOT DETECTED [facility] Comment: This test was performed using the APTIMA(R) HPV Assay ([employer] This assay detects E6/E7 viral messenger RNA (mRNA) from 14 high-risk HPV types (16,18,31,33,35,39,45,51, 52,56,58,59,66,68). For additional information please refer to: http://education.[employer]Vuze/faq/EUI454l3 (This link is being provided for informational/ educational purposes only.) The analytical performance characteristics of this assay have been determined by [employer] [place], [place]. The modifications have not been cleared or approved by the FDA. This assay has been validated pursuant to the CLIA regulations and is used for clinical purposes. Test Performed by [facility] [place], [address] [place] [address] Michel Fleming M.D., Ph.D., Director of Laboratories , CLIA [id number] Please note: Effective 07/03/2016, HPV testing will be performed using [employer]'s APTIMA test which targets mRNA. Detecting mRNA instead of DNA, as in older methods, offers significant improvements in specificity. 07/22/2019 3:52 PM EDT Renuka Delacruz CNM HISTORICAL/NON ORDERABLE LABS Final Result [facility] Anywhere [address] from Last 3 Months or Most Recently Relevant to Health Maintenance Insurance [facility] C3 [employer] * Guarantor: Char Hester Account Type Relation to Patient Date of Phone Billing Address Personal/Family Self [id number] Care Teams Iron Worker Foreman Relationship Specialty Start Date End Date Cristina De La Cruz MD [address] [facility] [place] [address] PCP - General Family Medicine 05/21/19
[2025-09-15 15:13] LABS: Folate 12.3 ng/mL (> or = 4.0); Vitamin B12 815 pg/mL (200-900)
[2025-09-17 16:53] LABS: HCV Log PCR 7.04 Log IU/mL (NOT DETECTED); HepC Viral Load 10900000 IU/mL (NOT DETECTED)
== END 2025-09-15 11:24 | disposition home or self-care (01) ==
LOC: HO.CHCLDS 11:23
PROVIDERS: Visit Provider Pediatrics
DX: I10 Essential (primary) hypertension (principal); F41.8 Other specified anxiety disorders; B18.2 Chronic viral hepatitis C; F11.91 Opioid use, unspecified, in remission; E55.9 Vitamin D deficiency, unspecified
CPT/HCPCS: 36415; 80076; 82043; 82306; 82570; 82607; 82746; 85025; 87522

== ENCOUNTER 2025-10-06 09:26 | Outpatient (AMB) | payer MEDICAID, SELFPAY ==
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
--- OUTSIDE RECORDS SUMMARY | 2025-10-06 11:00 | XMS_ITS | Encounter Summary ---
Author Organization [employer] Address [address] [place] [address] [address] [place] [address] Care Team Providers Care Hog Room Supervisor Name Role Phone Cristina De La Cruz MD Primary Care Provider [phone] Encounter Details Date Type Department Care Team ([facility] Contact Info) Description 04/16/2024 Orders Only [facility] MED & PEDS [address] [place], [place] [phone] Faina Benavides FNP [address] [place] [address] Social History Tobacco Use Types Packs/Day Years [...] Description 11/19/2025 1:30 PM EST Procedure Visit [facility] [address] [place], [place] [phone] Cristina De La Cruz MD [address] [place] [address] documented as of this encounter Procedures Procedure Name Priority Date/Time Associated Diagnosis Comments BI MAMMOGRAM SCREENING TOMOSYNTHESIS BILATERAL Routine 04/29/2024 10:50 AM EDT documented in this encounter Results * BI Mammogram Screening Tomosynthesis Bilateral (04/29/2024 10:50 AM EDT) Anatomical Region Laterality Modality Breast Bilateral Mammography 04/29/2024 10:5 0 AM EDT Narrative 05/26/2024 10:17 PM EDT [address] [place], [place] [address] Mammography Report Signed Patient: Char Hester MR#: [id number] : 1980 Acct:[id number] Age/Sex: 43 / F ADM Date: 04/29/24 Loc: HO.MAMMO Attending Dr: Cristina De La Cruz MD Ordering Physician: Cristina De La Cruz MD Results: 1Ne gative Date of Service: 04/29/24 Follow Up: 1 Year From Orig inal Mammogram Procedure(s): MM tomosynthesis screening BI Accession Number(s): [id number] cc: Cristina De La Cruz MD EXAMINATION: [...] in OV> 05/26/24 2213 DD/ 1050 TD/TT: Workday Senior Associate: Procedure Note Donotuseinterpreter, Image - 05/26/2024 [facility] [address] [place] [address] Mammography Report Signed Patient: Char HesterMR#: [id number] : 1980Acct:[id number] Age/Sex: 43 / FADM Date: 04/29/24 Loc: HO.MAMMO Attending Dr: Cristina De La Cruz MD Ordering Physician: Cristina De La Cruz MDResults: 1Ne gative Date of Service: 04/29/24Follow Up: 1 Year From Orig inal Mammogram Procedure(s): MM tomosynthesis screening BI Accession Number(s): [id number] cc: Cristina De La Cruz MD EXAMINATION: [...] in OV> 05/26/24 2213 DD/ 1050 TD/TT: Workday Senior Associate: us Cristina De La Cruz MD IMG BI PROCEDURES Final Resul t documented in this encounter Visit Diagnoses Not on filedocumented in this encounter Care Teams Hog Room Supervisor Relationship Specialty Start Date End Date Cristina De La Cruz MD [address] [place] [id number] PCP - General Family Medicine 05/21/19 documented as of this encounter
--- OUTSIDE RECORDS SUMMARY | 2025-10-06 11:00 | XMS_ITS | Encounter Summary ---
Author Organization [employer] Address [address] [place] [address] [place] [address] Care Team Providers Care Boiling Off Winder Name Role Phone Cristina De La Cruz MD Primary Care Provider [phone] Reason for Visit * Reason Onset Date Comments Nurse Triage 04/14/2024 Encounter Details Date Type Department Care Team ([facility] st Contact Info) Description 04/14/[address] [facility] MED & PEDS [address] [place], [place] [phone] Cristina De La Cruz MD [address] [place] [address] Nurse Triage Social History Tobacco Use Types [...] feels as though sh cannot go to [facility] and would like a televist. Patient [...] appts. Available at time of call. [facility] In Center hours and availability [...] Upcoming Encounters Date Type Department Care Team ([facility] st Contact Info) Description 11/19/2025 1:30 PM EST Procedure Visit [facility] MED [facility] PEDS [address] [place] [address] Cristina De La Cruz MD [address] [place] [address] documented as of this encounter Visit Diagnoses Diagnosis Moderate persistent asthma with exacerbation Unspecified asthma, with exacerbation documented in this encounter Care Teams Boiling Off Winder Relationship Specialty Start Date End Date Cristina De La Cruz MD [address] [place] [address] PCP - General Family Medicine 05/21/19 documented as of this encounter
--- OUTSIDE RECORDS SUMMARY | 2025-10-06 11:00 | XMS_ITS | Encounter Summary ---
Author Organization [employer] Address [address] [place] [address] Care Team Providers Care Project Coach Name Role Phone Cristina De La Cruz MD Primary Care Provider [phone] Reason for Visit * Reason Onset Date Comments Referral 08/22/2023 Encounter Details Date Type Department Care Team ([facility] Contact Info) Description 08/22/2023 Telephone [facility] MEDICINE [address] [place], [place] [phone] Cristina De La Cruz MD [address] [place], [place] [phone] Referral Social History Tobacco Use Types Packs/Day [...] Upcoming Encounters Date Type Department Care Team ([facility] Contact Info) Description 11/19/2025 1:30 PM EST Procedure Visit [facility] MED & PEDS [address] [place], [place] [phone] Cristina De La Cruz MD [address] [place] [address] documented as of this encounter Visit Diagnoses Not on filedocumented in this encounter Care Teams Project Coach Relationship Specialty Start Date End Date Cristina De La Cruz MD [address] [place] [address] PCP - General Family Medicine 05/21/19 documented as of this encounter
--- OUTSIDE RECORDS SUMMARY | 2025-10-06 11:00 | XMS_ITS | Clinical Summary ---
Author Organization [employer] Address [address] [facility] [address] [place] [address] Care Team Providers Care Edger Hand Name Role Phone Cristina De La Cruz MD Primary Care Provider [phone] Allergies Active Allergy Reactions Criticality Noted Date Comments Codeine 11/07/2024 Shellfish Allergy 11/07/2024 Medications * This document contains information received from the source organization and may not represent a complete record from that organization. Spacer/Aero-Holdi ng Chambers (AEROCHAMBER MAX W/FLOW-VU) miscIndications:B [...] per day. 30 tablet 11 5 08/11/20 Active omeprazole (PriLOSEC) [address] capsule [...] 11/26/23 will be left at [facility] red team. Counseled to quit smoking, [...] infection 12/25/2022 11/11/2024 Asthma 12/05/2021 11/11/2024 Encounters * This document contains information received from the source organization and may not represent a complete record from that organization. Date Type Department Care Team Description 09/21/2025 Telephone [facility] MEDICINE [address] [place] [address] Viri Shaw, CARA Hep C [place] 09/21/2025 Results Follow-Up [facility]EDS [address] [place] [address] Cristina De La Cruz MD Albumin, Random Urine W/Creatinine, CBC auto differential, Hepatic Function Panel, Additional followed-up results: 3 09/15/2025 10:30 AM EST Office Visit [facility] [address] [place] [address] Cristina De La Cruz MD Situational anxiety (Primary Dx); Chronic hepatitis C without hepatic coma (HCC); Opioid use disorder in remission; Essential hypertension; Vitamin D deficiency; Oropharyngeal dysphagia; Dietary counseling; Exercise counseling 09/15/2025 Travel 09/14/2025 Telephone [facility] [address] [place] [address] Cristina De La Cruz MD Chart Prep 09/08/2025 Orders Only [facility] External Provider, [facility] 08/12/2025 Results Follow-Up [facility] [address] [place] [address] Diane Diaz MD TSH W/Reflex to FT4, Basic Metabolic Panel, Lipid Panel, Standard 08/11/2025 10:00 AM EDT Office Visit [facility] [address] [place] [address] Diane Diaz MD Neck swelling (Primary Dx); Essential hypertension 08/11/2025 Travel 08/11/2025 Telephone [facility] MEDICINE [address] [place] [address] Cristina De La Cruz MD Nurse T[facility] Info) Description 11/19/2025 1:30 PM EST Procedure Visit [facility] MED [facility] PEDS [address] [place] [address] Cristina De La Cruz MD [address] [place] [address] Health Maintenance Due Date Last Done Comments [...] in remission Essential hypertension Vitamin D deficiency HEPATITIS C VIRAL RNA, QUANTITATIVE, REAL-TIME PCR Routine 09/15/2025 11:26 AM EST Situational anxiety Chronic hepatitis C without hepatic coma (HCC) Opioid use disorder in remission Essential hypertension Vitamin D deficiency VITAMIN D,25-OH,TOTAL,IA Routine 09/15/2025 11:26 AM EST Situational anxiety Chronic hepatitis C without hepatic coma (HCC) Opioid use disorder in remission Essential hypertension Vitamin D deficiency VITAMIN B12/FOLATE, SERUM PANEL Routine 09/15/2025 11:26 AM EST Situational [...] 11:30 AM EST) Creatinine, Urine 181.03 mg/dL [facility] Microalbumin Urine 8.0 mg/L [facility] Microalbum Creatinine Ratio Ur 4.4 <30 ug/mg cr [facility] Comment:Albumin/Creatinine R atio Reference Ranges: Normal: < 30 ug/mg creatinine Microalbuminuria: 30 - 300 ug/mg creatinineClinical Albuminuria: > 300 ug/mg creatinine Urine (Urine, Random) 09/15/2025 11:30 AM EST 09/15/2025 2:05 PM EST us Cristina De La Cruz MD LAB URINE ORDERABLES Final Re sult [facility] [address] [place] [phone] * (ABNORMAL) Vitamin D, 25-Hydroxy, Total, Immunoassay (09/15/2025 11:26 AM EST) Vitamin D 25-OH Total 25.8(L) >30 ng/mL [facility] Comment: Health Based Reference Values*< 20 ng/mL Mvssatiaa77-59 ng/mL Insufficient> 30 ng/mL Sufficient*David BANKS. N Engl J Med. 2007;357:266-280There is no well-established upper level of normal vitamin Dlevels. Some laboratories use 50 ng/mL as an upper limit ofnormal. However, toxicity is patient-dependent and may occurat any level. Careful correlation with the patient'spresentation is necessary and, if there is concern forvitamin D toxicity, treatment should be consideredirrespective of the serum level.Care must be taken in interpreting Vitamin D results fromdifferent laboratories and methodologies. Published datademonstrated that results from patients undergoinghemodialysis may show a negative bias when tested withvarious automated 25-OH vitamin D assays when compared toLC-MS/MS.When testing samples from patients whose predominant form ofVitamin D is Vitamin D2, such as patients receiving VitaminD2 supplementation, results that are subtherapeutic shouldbe confirmed with another method such as LC-MS/MS. Blood Venous blood specimen / Unknown 09/15/2025 11:26 AM EST 09/15/2025 2:19 PM EST us Cristina De La Cruz MD LAB BLOOD ORDERABLES Final Re sult [facility] [address] [place] [address] [phone] * Vitamin B12/Folate, Serum Panel (09/15/2025 11:26 AM EST) Vitamin B12 815 200 - 900 pg/mL [facility] Comment:NORMAL 200-900 PG/ML INDETERMINATE 160-199 PG/ML DEFICIENT < 160 PG/ML Folate 12.3 > or = 4.0 ng/mL [facility] Comment:Reference Values:> o r = 4.0 ng/mL< 4.0 ng/mL suggests folate deficiency Methotrexate, aminopterin and folinic acid(leucovorin) are chemotherapeutic agents whose molecularstructures are similar to folate; therefore, the Architectfolate assay cannot be used for patients using these drugs. Blood Venous blood specimen / Unknown 09/15/2025 11:26 AM EST 09/15/2025 2:16 PM EST Cristina De La Cruz MD LAB BLOOD ORDERABLES Final Re sult Performing Organization Address [facility] Co de Phone Number [facility] [address] [place] [phone] * (ABNORMAL) Hepatitis C Viral RNA, Quantitative, Real-Time PCR (09/15/2025 11:26 AM EST) Pathologist [facility] Hepatitis C Viral Load [id number]( A) NOT DETECTED IU/mL [facility] HCV Log PCR 7.04(A) NOT DETECTED Log IU/mL [facility] Comment:For additional infor mation, please refer tohttp://education.Mozido/faq/GHT14i0(This link is being provided for informational/educational purposes only.)THIS TEST WAS PERFORMED AT:[employer] [place] [phone] CHRISTENSEN MD Blood Venous blood specimen / Unknown 09/15/2025 11:26 AM EST 09/15/2025 2:19 PM EST Cristina De La Cruz MD LAB BLOOD ORDERABLES Final Re sult Performing Organization Address [facility] Co de Phone Number [facility] [address] [place] [phone] * (ABNORMAL) CBC auto differential (09/15/2025 11:26 AM EST) Pathologist [facility] White Blood Count 5.7 4.8 - 10.8 X10*3/uL [facility] Red Blood Count 4.93 4.20 - 5.50 X10*6/uL [facility] Hemoglobin 15.0 12.0 - 16.0 g/dl [facility] Hematocrit 46.1 37.0 - 47.0 % [facility] Mean Corpuscular Volume 93.5 80.0 - 98.0 fL [facility] Mean Corpuscular Hemoglobin 30.4 27.0 - 33.0 pg [facility] Mean Corpuscular HGB Conc 32.5 31.0 - 35.0 g/dl [facility] Red Cell Distribution Width 11.8 11.0 - 16.0 % [facility] Platelet Count 129(L) 160 - 400 X10*3/uL [facility] Mean Platelet Volume 10.9 9.4 - 12.3 fL [facility] Neutrophils Percent Auto 47.1 45 - 73 % [facility] Imm Gran Pct Auto 0.2 0.0 - 0.4 % [facility] Lymphocytes Percent Auto 43.0(H) 20 - 40 % [facility] Monocytes Percent Auto 7.4 2 - 11 % [facility] Eosinophils Percent Auto 1.9 0 - 4 % [facility] Basophils Percent Auto 0.4 0 - 2 % [facility] NRBC Pct Auto 0.0 0.0 - 0.2 /100WBC [facility] Neutrophils Absolute Auto 2.7 2.0 - 8.3 x10*3/uL [facility] Imm Gran Abs Auto 0.01 0.00 - 0.03 X10*3/uL [facility] Lymphocytes Absolute Auto 2.4 1.2 - 4.9 X10*3/uL [facility] Monocytes Absolute Auto 0.4 0.1 - 1.2 X10*3/uL [facility] Eosinophils Absolute Auto 0.1 0.0 - 0.4 X10*3/uL [facility] Basophils Absolute Auto 0.0 0.0 - 0.2 X10*3/uL [facility] NRBC Abs Auto 0.000 0.0 - 0.012 X10*3/uL [facility] Blood Venous blood specimen / Unknown 09/15/2025 11:26 AM EST 09/15/2025 2:14 PM EST Cristina De La Cruz MD LAB BLOOD ORDERABLES Final Re sult Performing Organization Address [facility] de Phone Number [facility] [address] [place] [phone] * (ABNORMAL) Hepatic Function Panel (09/15/2025 11:26 AM EST) Bilirubin, Total 0.4 0.0 - 1.0 mg/dL [facility] Bilirubin, Direct 0.2 0.0 - 0.5 mg/dL [facility] Aspartate Amino Transferase 96(H) 5 - 31 U/L [facility] Alanine Aminotransferase 142(H) 0 - 31 U/L [facility] Total Protein 7.9 6.5 - 8.0 g/dL [facility] Albumin Level 4.5 3.5 - 5.0 g/dL [facility] Alkaline Phosphatase 85 39 - 117 U/L [facility] Blood Venous blood specimen / Unknown 09/15/2025 11:26 AM EST 09/15/2025 2:19 PM EST Cristina De La Cruz MD LAB BLOOD ORDERABLES Final Re sult Performing Organization Address [facility] de Phone Number [facility] [address] [place] [phone] * MR Cervical Spine w/o Contrast (09/08/2025 6:36 PM EST) Anatomical Region Laterality Modality Spine, C-spine Magnetic Resonan ce 09/08/2025 6:36 PM EST Narrative 09/09/2025 7:00 AM EST [address] [address] Magnetic Resonance Report Signed Patient: Char Hester MR#: [id number] : 1980 Acct:[id number] Age/Sex: 45 / F ADM Date: 09/08/25 Loc: HO.MRI Attending Dr: Vikki Nina MD Ordering Physician: Vikki Nina MD Date of Service: 09/08/25 Procedure(s): MR cervical spine wo con Accession Number(s): [id number] cc: Cristina De La Cruz MD; Vikki [...] in OV> 09/09/25 0657 DD/ 35 TD/TT: 09/08/25 191 Electrical Engineer Mep: Procedure Note Donotuseinterpreter, Image - 09/09/2025 [place] [address] Magnetic Resonance Report Signed Patient: Char HesterMR#: [id number] : 1980Acct:[id number] Age/Sex: 45 / FADM Date: 09/08/25 Loc: HO.MRI Attending Dr: Vikki Nina MD Ordering Physician: Vikki Nina MD Date of Service: 09/08/25 Procedure(s): MR cervical spine wo con Accession Number(s): [id number] cc: Cristina De La Cruz MD; Vikki [...] OV> 09/09/25 0657 DD/ 35 TD/TT: 09/08/251916 Electrical Engineer Mep: [facility] External Provider IMG MRI PROCEDURES Final Result * MR Brain w/o Contrast (09/08/2025 6:36 PM EST) Anatomical Region Laterality Modality Brain Magnetic Resonan ce 09/08/2025 6:36 PM EST Narrative 09/09/2025 7:00 AM EST [address] [address] Magnetic Resonance Report Signed Patient: Char Hester MR#: [id number] : 1980 Acct:[id number] Age/Sex: 45 / F ADM Date: 09/08/25 Loc: HO.MRI Attending Dr: Vikki Nina MD Ordering Physician: Vikki Nina MD Date of Service: 09/08/25 Procedure(s): MR head/brain wo con Accession Number(s): [id number] cc: Cristina De La Cruz MD; Vikki [...] in OV> 09/09/25 0657 DD/ 35 TD/TT: 09/08/25 185 Electrical Engineer Mep: Procedure Note Donotuseinterpreter, Image - 09/09/[address] [address] Magnetic Resonance Report Signed Patient: Char HesterMR#: [id number] : 1980Acct:[id number] Age/Sex: 45 / FADM Date: 09/08/25 Loc: HO.MRI Attending Dr: Vikki Nina MD Ordering Physician: Vikki Nina MD Date of Service: 09/08/25 Procedure(s): MR head/brain wo con Accession Number(s): [id number] cc: Cristina De La Cruz MD; Vikki [...] MD 09/09/2025 06:57 AM EST Dictated By: Rocale Dean MD Signed By: <Electronically signed by Rocael Comer MDin OV> 09/09/25 0657 DD/ 183 TD/TT: 09/08/25 185 Electrical Engineer Mep: [facility] External Provider IMG MRI PROCEDURES Final Result * TSH W/Reflex to FT4 (08/11/2025 11:27 AM EDT) TSH reflex Free T4 1.13 0.32 - 4.0 uIU/mL [facility] Blood Venous blood specimen / Unknown 08/11/2025 11:27 AM EDT 08/11/2025 2:21 PM EDT Diane Diaz MD LAB BLOOD ORDERABLES Final Resul t [facility] [address] [place] [phone] * Lipid Panel, Standard (08/11/2025 11:27 AM EDT) Triglycerides 87 <150 mg/dL [facility] Comment:Desirable Triglyceri de: less than 150 mg/dLBorderline High Triglyceride 150-199 mg/dLHigh Triglyceride: 200-499 mg/dLVery High Triglyceride: greater than or equal to 5OO mg/dL Cholesterol 155 <200 mg/dL [facility] Comment:Desirable Cholestero l: less than 200 mg/dLBorderline High Cholesterol: 200-239 mg/dLHigh Cholesterol: greater than 239 mg/dL LDL Cholesterol Calculated 97 <100 mg/dL [facility] Comment:Desirable LDL: less than 100 mg/dLNear Optimal/Above Optimal LDL: 110- 129 mg/dLBorderline High LDL: 130-159 mg/dLHigh LDL: 160-189 mg/dLVery High LDL: greater than or equal to 190 mg/dL HDL Cholesterol 41 >40 mg/dL [facility] Comment:Desirable HDL: great er than 40 mg/dL Note: This HDL assay may give artificially low results in patients with liver disease. Blood Venous blood specimen / Unknown 08/11/2025 11:27 AM EDT 08/11/2025 2:21 PM EDT us Diane Diaz MD LAB BLOOD ORDERABLES Final Resul t [facility] [address] [place] [phone] * Basic Metabolic Panel (08/11/2025 11:27 AM EDT) Sodium 138 135 - 145 mmol/L [facility] Potassium 4.1 3.3 - 5.1 mmol/L [facility] Chloride 101 96 - 108 mmol/L [facility] Carbon Dioxide 29 22 - 29 mmol/L [facility] Anion Gap 12 12 - 20 [facility] Urea Nitrogen (BUN) 11 9 - 16 mg/dL [facility] Creatinine, Serum 0.63 0.5 - 1.4 mg/dL [facility] Estimated Glomerular Filt Rate >60 [facility] Comment:Chronic Kidney Disea se: Estimated GFR < 60 mL/min/1.31g7Gfxplc Kidney Disease: Estimated GFR < 15 mL/min/1.73m2 Glucose 97 60 - 115 mg/dL [facility] Calcium 9.4 8.4 - 10.2 mg/dL [facility] Blood Venous blood specimen / Unknown 08/11/2025 11:27 AM EDT 08/11/2025 2:21 PM EDT us Diane Diaz MD LAB BLOOD ORDERABLES Final Resul t Performing Organization Address [facility]/ZIP Co de Phone Number [facility] [address] [place] [phone] * HIV-1/2 Antigen and Antibodies, Fourth Generation, with Reflexes (11/07/2024 2:42 PM EST) HIV AB/AG Nonreactive Nonreactive [facility] Comment:HIV-1 p24 Ag and/or HIV-1/HIV-2 Ab not detected.A test result that is nonreactive does not exclude thepossibility of exposure to or infection with HIV-1 and/orHIV-2. Nonreactive results in this assay for individualswith prior exposure to HIV-1 and/or HIV-2 may be due toantigen and antibody levels that are below the limit ofdetection of this assay.The [employer] HIV Ag/Ab Combo assay result andsupplemental assay [...] ORDERABLES Final Re sult Performing Organization Address City/[facility]/ZIP Co de Phone Number [facility] [address] [place] [address] [phone] * BI Mammogram Screening Tomosynthesis Bilateral (04/29/2024 10:50 AM EDT) Anatomical Region Laterality Modality Breast Bilateral Mammography 04/29/2024 10:5 0 AM EDT Narrative 05/26/2024 10:17 PM EDT [address] [place], [place] [address] Mammography Report Signed Patient: Char Hester MR#: [id number] : 1980 Acct:[id number] Age/Sex: 43 / F ADM Date: 04/29/24 Loc: HO.MAMMO Attending Dr: Cristina De La Cruz MD Ordering Physician: Cristina De La Cruz MD Results: 1Ne gative Date of Service: 04/29/24 Follow Up: 1 Year From Orig inal Mammogram Procedure(s): MM tomosynthesis screening BI Accession Number(s): [id number] cc: Critsina De La Cruz MD EXAMINATION: MM SCREENING [...] by Donna Strange MD in OV> 05/26/24 5062 DD/ 1050 TD/TT: Electrical Engineer Mep: Procedure Note Donotuseinterpreter, Image - 05/26/2024 [facility] [address] [place] [address] Dr. Arellano, [place] [address] Mammography Report Signed Patient: Char HesterMR#: [id number] : 1980Acct:[id number] Age/Sex: 43 / FADM Date: 04/29/24 Loc: HO.MAMMO Attending Dr: Cristina De La Cruz MD Ordering Physician: Cristina De La Cruz MDResults: 1Ne gative Date of Service: 04/29/24Follow Up: 1 Year From Orig inal Mammogram Procedure(s): MM tomosynthesis screening BI Accession Number(s): [id number] cc: Cristina De La Cruz MD EXAMINATION: [...] in OV> 05/26/24 2213 DD/ 1050 TD/TT: Electrical Engineer Mep: Cristina De La Cruz MD IM BI PROCEDURES Final Resul t * HPV mRNA E6/E7 (07/22/2019 3:52 PM EDT) HPV mRNA E6/E7 Not Detected NOT DETECTED [facility] Comment: This test was performed using the APTIMA(R) HPV Assay ([employer] This assay detects E6/E7 viral messenger RNA (mRNA) from 14 high-risk HPV types (16,18,31,33,35,39,45,51, 52,56,58,59,66,68). For additional information please refer to: http://education.Mozido/faq/XHW102s6 (This link is being provided for informational/ educational purposes only.) The analytical performance characteristics of this assay have been determined by [facility] [place], [place]. The modifications have not been cleared or approved by the FDA. This assay has been validated pursuant to the CLIA regulations and is used for clinical purposes. Test Performed by [facility], [facility] [place], [address] [place] [address] Michel Fleming M.D., Ph.D., Director of Laboratories , CLIA [id number] Please note: Effective 07/03/2016, HPV testing will be performed using [employer]'s APTIMA test which targets mRNA. Detecting mRNA instead of DNA, as in older methods, offers significant improvements in specificity. 07/22/2019 3:52 PM EDT Renuka Delacruz CNM HISTORICAL/NON ORDERABLE LABS Final Result [facility] [address] from Last 3 Months or Most Recently Relevant to Health Maintenance Insurance [facility] [employer] Care Teams Edger Hand Relationship Specialty Start Date End Date Cristina De La Cruz MD [address] [place] [address] [place] [address] PCP - General Family Medicine 05/21/19
--- OUTSIDE RECORDS SUMMARY | 2025-10-06 11:00 | XMS_ITS | Encounter Summary ---
Author Organization [employer] Address [address] [facility] 7 [place] [address] Care Team Providers Care Mains And Service Supervisor Name Role Phone Cristina De La Cruz MD Primary Care Provider [phone] Reason for Visit * Reason Onset Date Comments Letter for School/Work 09/24/2023 Encounter Details Date Type Department Care Team ([facility] st Contact Info) Description 09/24/2023 Telephone [facility] MEDICINE [address] [place] [address] Cristina De La Cruz MD [address] [place] [address] Letter for School/Work Social History Tobacco Use [...] Upcoming Encounters Date Type Department Care Team ([facility] st Contact Info) Description 11/19/2025 1:30 PM EST Procedure Visit [facility] [address] [place] [address] Cristina De La Cruz MD [address] [place] [address] documented as of this encounter Visit Diagnoses Not on filedocumented in this encounter Care Teams Mains And Service Supervisor Relationship Specialty Start Date End Date Cristina De La Cruz MD [address] [place] [address] PCP - General Family Medicine 05/21/19 documented as of this encounter
--- OUTSIDE RECORDS SUMMARY | 2025-10-06 11:00 | XMS_ITS | Encounter Summary ---
Author Organization [employer] Address [address] [place] [address] [address]t [place] [address] Care Team Providers Care Transportation Department Head Name Role Phone Cristian De La Crzu MD Primary Care Provider [phone] Encounter Details Date Type Department Care Team (Late st Contact Info) Description 08/12/2025 Results Follow-Up [facility] MED & PEDS [address] [place] [address] Diane Diaz MD [address] [place] [address] TSH W/Reflex to FT4, Basic Metabolic Panel, [...] Description 11/19/2025 1:30 PM EST Procedure Visit [facility] [address] [place] [address] Cristina De La Cruz MD [address] [place] [address] documented as of this encounter Visit Diagnoses Not on filedocumented in this encounter Care Teams Transportation Department Head Relationship Specialty Start Date End Date Cristina De La Cruz MD [address] [place] [address] PCP - General Family Medicine 05/21/19 documented as of this encounter
--- OUTSIDE RECORDS SUMMARY | 2025-10-06 11:00 | XMS_ITS | Clinical Summary ---
Author Organization [facility] ity Address [address] [place] [address] Care Team Providers Care Stoker Erector Name Role Phone Unavailable Primary Care Provider [...]
== END 2025-10-06 09:45 | disposition home or self-care (01) ==
LOC: HO.HSM 09:27
PROVIDERS: PCP Pediatrics; Visit Provider Psychiatry & Neurology Neurology
DX: M47.812 Spondylosis without myelopathy or radiculopathy, cervical region (principal); R20.0 Anesthesia of skin; F11.91 Opioid use, unspecified, in remission; K73.9 Chronic hepatitis, unspecified
CPT/HCPCS: 99214

== ENCOUNTER → 2025-10-06 09:26 | Outpatient (BNVA) | payer MEDICAID, SELFPAY | PROVIDERS: PCP Pediatrics; Visit Provider Psychiatry & Neurology Neurology | DX: M47.812 Spondylosis without myelopathy or radiculopathy, cervical region (principal); F11.91 Opioid use, unspecified, in remission; K73.9 Chronic hepatitis, unspecified | CPT/HCPCS: 99212 ==

== ENCOUNTER 2025-10-06 10:18 | Outpatient (REF) | payer MEDICAID, SELFPAY ==
[2025-10-06 15:40] LABS: INTERNATIONAL NORM RATIO 1.0 (0.9-1.1); Prothrombin Time 11.8 SEC (11.2-13.5)
[2025-10-07 05:26] LABS: HBS Num1 61.71 mIU/mL (0-7.99); HBc Num1 0.15 S/CO (0.00-0.79); HIV Num 1 0.06 S/CO (0.00-0.99); ~Hepatitis B Surface Antibody REACTIVE (Nonreactive)
[2025-10-08 13:28] LABS: HBsAGNum1 0.27 S/CO (0.00-0.99); Hepatitis B Surface Antigen Negative (Negative)
== END 2025-10-06 10:19 | disposition home or self-care (01) ==
LOC: HO.CHCLDS 10:18
PROVIDERS: Visit Provider Family Medicine
DX: B18.2 Chronic viral hepatitis C (principal); Z11.4 Encounter for screening for human immunodeficiency virus [HIV]
CPT/HCPCS: 36415; 81596; 85610; 86704; 86706; 86708; 87340; 87389; 87902